=== PATIENT | female | born 1990 | race Caucasian/White ===

== ENCOUNTER → 2020-12-23 10:40 | Outpatient (REF) | payer OTHER, SELFPAY ==
--- NOTE | 2020-12-23 11:00 | CA_ITS ---
Acquisition Time: 2020-12-23 11:05:43 Total Exercise Time: 00:08:10 Test Indications: CP Medications: SEE CHART Protocol: YOEL Max HR: 179 BPM 95% of Pred: 188 BPM Max BP: 138/080 mmHG Max Work Load: 10.4 METS Exercise stress ECHO using Yoel protocol, total of 8 min 10 sec. METS 10.40and TAPHR up to 95 %. Pt tolerated well, denies any anginal sx. EKG without arrhythmias no ischemic changes seen during exercise or in recovery. ECHO images taken at rest and immediately after peak exercise HR reached. Definity contrast used. Normotensive response to exercise. Test reviewed with Dr. Andrews. Referred By: Ariel Gonzalez Overread By:
== END ==
LOC: HO.CARD 10:40
PROVIDERS: Visit Provider Internal Medicine Cardiovascular Disease
DX: R07.9 Chest pain, unspecified (principal)
CPT/HCPCS: 93350; Q9957

== ENCOUNTER 2024-06-29 09:15 | Outpatient (REF) | payer MEDICAID, SELFPAY ==
[2024-06-29 14:13] LABS: MANUAL DIFF FLAG NO
[2024-06-29 14:29] LABS: Basophils Absolute Auto 0.1 X10*3/uL (0.0-0.2); Basophils Percent Auto 0.7 % (0-2); Eosinophils Absolute Auto 0.1 X10*3/uL (0.0-0.4); Eosinophils Percent Auto 0.8 % (0-4); Hematocrit 34.7 % (37.0-47.0); Imm Gran Abs Auto 0.02 X10*3/uL (0.00-0.03); Imm Gran Pct Auto 0.2 % (0.0-0.4); Lymphocytes Absolute Auto 1.7 X10*3/uL (1.2-4.9); Lymphocytes Percent Auto 20.2 % (20-40); Mean Corpuscular HGB Conc 31.7 g/dl (31.0-35.0); Mean Corpuscular Hemoglobin 26.1 pg (27.0-33.0); Mean Corpuscular Volume 82.2 fL (80.0-98.0); Mean Platelet Volume 12.2 fL (9.4-12.3); Monocytes Absolute Auto 0.5 X10*3/uL (0.1-1.2); Monocytes Percent Auto 5.6 % (2-11); Neutrophils Absolute Auto 6.1 x10*3/uL (2.0-8.3); Neutrophils Percent Auto 72.5 % (45-73); Platelet Count 424 X10*3/uL (160-400); Red Blood Count 4.22 X10*6/uL (4.20-5.50); Red Cell Distribution Width 13.9 % (11.0-16.0); White Blood Count 8.5 X10*3/uL (4.8-10.8)
[2024-06-29 14:59] LABS: Rheumatoid Factor < 13.0 IU/mL (<15.0)
[2024-06-29 15:07] LABS: Erythrocyte Sedimentation Rate 23 MM/HR (0-20)
[2024-06-29 15:20] LABS: Alanine Aminotransferase 21 U/L (0-31); Albumin Level 4.1 g/dL (3.5-5.0); Alkaline Phosphatase 65 U/L (39-117); Anion Gap 9 (12-20); Aspartate Amino Transferase 22 U/L (5-31); Bilirubin Total 0.4 mg/dL (0.0-1.0); Blood Urea Nitrogen 11 mg/dL (9-16); Calcium 9.1 mg/dL (8.4-10.2); Carbon Dioxide 26 mmol/L (22-29); Chloride 105 mmol/L (96-108); Cholesterol 211 mg/dL (<200); Estimated Glomerular Filt Rate > 60; Glucose Random 88 mg/dL (60-115); HDL Cholesterol 50 mg/dL (>40); LDL Cholesterol Calculated 145 mg/dL (<100); Potassium 3.8 mmol/L (3.3-5.1); Sodium 136 mmol/L (135-145); Total Protein 7.7 g/dL (6.5-8.0); Triglycerides 83 mg/dL (<150); Uric Acid 3.6 mg/dL (2.4-5.7)
[2024-06-29 15:28] LABS: TSH reflex Free T4 0.93 uIU/mL (0.32-4.0); Vitamin D 25-OH Total 27.4 ng/mL (>30)
[2024-07-03 11:39] LABS: Cyclic Citrullinated Peptide <16 UNITS
[2024-07-04 11:38] LABS: Anti Nuclear Antibody Screen POSITIVE (NEGATIVE)
== END 2024-06-29 09:16 | disposition home or self-care (01) ==
LOC: HO.CHCLDS 09:15
PROVIDERS: Visit Provider Family Medicine
DX: M25.50 Pain in unspecified joint (principal); E66.01 Morbid (severe) obesity due to excess calories; Z68.36 Body mass index [BMI] 36.0-36.9, adult
CPT/HCPCS: 36415; 80053; 80061; 82306; 84443; 84550; 85025; 85652; 86038; 86039; 86140; 86200; 86431

== ENCOUNTER 2025-07-12 11:33 | Outpatient (REF) | payer MEDICAID, SELFPAY ==
--- OUTSIDE RECORDS SUMMARY | 2025-07-08 10:00 | XMS_ITS | Encounter Summary ---
Author Organization [employer] Address [address] [place] [address] Care Team Providers Care Bleacher Sulfite Pulp Name Role Phone Anastasiia Vital MD Primary Care Provider [phone] Reason for Visit * Reason Comments Routine Cleaning Dental Exam Encounter Details Date Type Department Care Team (Late st Contact Info) Description 07/08/2025 10:00 AM EDT Office Visit [facility] ADULT DENTAL [address] [place] [address] Casey Lacey Dental calculus (Primary Dx); Dental caries Social History Tobacco Use Types Packs/Day Years Used Date Smoking Tobacco: Never Passive Smoke Exposure: Never Smokeless Tobacco: Never Alcohol Use Standard Drinks/Week Comments Never 0 (1 standard drink = 0.6 oz pur e alcohol) Depression Answer Date Recorded Patient Health Questionnaire-9 Score 11 10/01/2024 Patient Health Questionnaire-9 Score 11 10/01/2024 Last PHQ-9: Questionnaire Data Not on file 1 12/02/2023 Housing Stability Answer Date Recorded What is your housing situation today? I have ran samaniego 06/19/[address] you li ve. Do you have problems with any of the following? None of the above 06/19/2024 Food Insecurity Answer Date Recorded Within the past 12 months, y ou worried that your food would run out before you got money to buy more: Never True 06/19/2024 Within the past 12 months,th e food you bought just didn't last and you didn't have enough money to get more: Never True Transportation Answer Date Recorded In the past 12 months, has l ack of transportation kept you from medical appts, meetings, work or from getting things needed for daily living? No 06/19/2024 Utilities Answer Date Recorded In the past 12 months, has t he electric, gas, oil or water company threatened to shut off services in your home? No 06/19/2024 Depression Answer Date Recorded Patient Health Questionnaire-2 Score 2 10/01/2024 Internet Access Answer Date Recorded Internet Access Q1 Yes 06/25/2024 Internet Access Q2 Not on file 06/25/2024 Comments No Sex and Gender Information Value Date Recorded Sex Assigned at Female 08/23/2022 10:35 AM EDT Legal Sex Female 10:35 AM EDT Gender Identity Female 08/23/2022 10:35 AM EDT Sexual Orientation Straight 08/23/2022 10 :35 AM EDT documented as of this encounter Last Filed Vital Signs Vital Sign Reading Time Taken Comments Blood Pressure 134/68 07/08/2025 9:50 AM EDT Pulse 65 07/08/2025 9:50 AM EDT Temperature - - Respiratory Rate - - Oxygen Saturation - - Inhaled Oxygen Concentration - - Weight - - Height - - Body Mass Index - - documented in this encounter Progress Notes * Casey Lacey - 07/08/2025 10:00 AM EDT Patient ID: Annalisa Lundberg is a 35 y.o. female. Time Out: Timeout Date: 07/08/25, Timeout Time: 950 Location: [facility] Tooth: Maxilla and Mandible Procedure: Exam and Prophylaxis Verified the above with patient, medical assistant dermatology, and provider. Confirmed via patient's chart, intraorally and by radiographs. Cheese Weigher: not applicable Medical Hx: Vitals: Blood pressure 134/68, pulse 65. Medications, Med Hx reviewed with patient and updated in chart. Treatment Provided Dental procedures in this visit D1110 - PROPHYLAXIS - ADULT (Completed) Service provider: Casey Lacey Billing provider: Dion Kelly DMD [id number] - ORAL HYGIENE INSTRUCTIONS (Completed) Service provider: Casey Lacey Billing provider: Dion Kelly DMD [id number] - CASE PRESENTATION, DETAILED AND EXTENSIVE TREATMENT PLANNING (Completed) Service provider: Casey Lacey Billing provider: Dion Kelly DMD Instruments Used: Ultrasonic Scalers and Prophy angle Fluoride: N/A Oral Cancer Screening: No lesions Head/Neck Exam: No Lesions Calculus: Light and Localized Plaque: Light and Generalized Stain: Light and Localized Bleeding: Light and Localized Gingiva: Erythematous OH: Fair Perio Chart: Not Completed Oral hygiene instructions provided to patient including brushing technique and flossing. Dental exam done by . Recommendations: [place] two times daily, modified medina technique, Floss daily Recall Frequency: 6 mo NV: 6mr Hygienist: Casey Lacey RDH * Dion Kelly DMD - 07/08/2025 10:00 AM EDT Dental procedures in this visit D1110 - PROPHYLAXIS - ADULT (Completed) Service provider: Casey Lacey Billing provider: Dion Kelly DMD D1330 - ORAL HYGIENE INSTRUCTIONS (Completed) Service provider: Casey Lacey Billing provider: Dion Kelly DMD [id number] - CASE PRESENTATION, DETAILED AND EXTENSIVE TREATMENT PLANNING (Completed) Service provider: Casey Lacey Billing provider: Dion Kelly DMD [id number] - PERIODIC ORAL EVALUATION - ESTABLISHED PATIENT (Completed) Service provider: Dion Kelly DMD Billing provider: Dion Kelly DMD Patient ID: Annalisa Lundberg is a 35 y.o. female. Time Out: Timeout Date: 07/08/25, Timeout Time: 950 Location: [facility] Tooth: all Procedure: Exam Verified the above with patient, medical assistant dermatology, and provider. Confirmed via patient's chart, intraorally and by radiographs. Cheese Weigher: Yes. Language: Maori. Cheese Weigher's Name: Catalina Chief Complaint Patient presents with Routine Cleaning Dental Exam Medical Hx: Vitals: Blood pressure 134/68, pulse 65. Medical History[1] Medications: Encounter Medications[2] Objective HPI: pt notes inflamed gingiva- stressed OHI and advise electric toothbrush Pt did not bring existing partial today - advise to bring to next visit so we can evaluate Soft Tissue Exam No findings documented this visit Head and Neck Exam: all structures examined Details: no swellings, ulcerations or lymphadenopathies OCS: negative Dental Exam Multiple areas of recurrent decay present - updated odontogram as there was no note from last exam visit #2-OL decay #3-MO decay #4-MOD decay #5-DO decay #8 existing RCT, post, crown. PARL present. Advise consult for retx, new post/core/crown #13-DO recurrent decay #14- recurrent decay #18 - recurrent decay and sensitive, advise extraction. Unopposed tooth #19 - MOD recurrent decay, new protestant planned #29- DO recurrent decay #31 - existing DO composite with recurrent decay, advise core/crown Informed pt of findings, treatment options and recommendations. All questions answered Rx written for prevident and counseled pt on use Radiographic Interpretation: Associated radiographs for today's visit were reviewed and finding(s) were discussed with the patient. Findings include: see above Hard Tissue Exam: Decay noted - see charting and treatment plan Perio Dx: gingivitis Reference tooth chart for additional findings. Oral Cancer Risk: Low Risk Oral Hygiene Instructions: [place] two times daily, modified medina technique, Floss daily, Electric toothbrush, Soft bristle toothbrush, [place] Tongue, Anti- sensitivity toothpaste, Prevident Caries Risk Assessment: High- two or more risk factors Assessment/Plan Caries control Consult for retx #[address] Nicholson #8,31 crowns Maintenance and recare Patient tolerated procedure well, all questions answered and expressed understanding. Dismissed in good condition. NV: TANNA [employer] Marker: Lizeth Gonzales Dentist: Dion Kelly DMD [1] Past Medical History: Diagnosis Date Bilateral calcaneal spurs Environmental and seasonal allergies Obesity PCOS (polycystic ovarian syndrome) [2] Outpatient Encounter Medications as of 07/08/2025 Medication Sig Dispense Refill acetaminophen (Tylenol 8 Hour) 650 MG ER tablet TAKE 1 TABLET BY MOUTH EVERY 8 HOURS NEEDED FOR MILD PAIN. NOT TO EXCEED 6 TABLETS PER DAY cetirizine (ZyrTEC) 10 MG tablet Take 1 tablet (10 mg) by mouth at bedtime. 90 tablet 0 cholecalciferol (Vitamin D-3) 50 MCG (1999 UT) capsule Take 1 capsule (50 mcg) by mouth Once per day. 120 capsule 3 Diclofenac Sodium 1 % gel APPLY 1 APPLICATION TOPICALLY TO THE AFFECTED AREA 4 TIMES A DAY NEEDED FOR MILD PAIN famotidine (Pepcid) 20 MG tablet Take 1 tablet (20 mg) by mouth at bedtime. 30 tablet 2 fexofenadine (Ana) 180 MG tablet Take 1 tablet (180 mg) by mouth if needed each day (Allergies). 90 tablet 0 hydrOXYzine pamoate (Vistaril) 25 MG capsule Take 1 capsule (25 mg) by mouth every 6 (six) hours ifneeded for anxiety. 90 capsule 1 Misc Natural Products (BRAINSTRONG MEMORY SUPPORT PO) Take by mouth. sertraline (Zoloft) 50 MG tablet Take 1 tablet (50 mg) by mouth Once per day. 90 tablet 1 Sodium Fluoride 1.1 % cream [place] teeth for 2 minutes, morning and night. Spit, do not rinse. Do not eat or drink anything for 30 minutes following use. 112 g 3 [DISCONTINUED] cetirizine (ZyrTEC) 10 MG tablet Take 1 tablet (10 mg) by mouth at bedtime. 30 tablet 2 [DISCONTINUED] cholecalciferol (Vitamin D-3) 50 MCG (2000 UT) capsule Take 1 capsule (50 mcg) by mouth Once per day. 120 capsule 3 [DISCONTINUED] famotidine (Pepcid) 20 MG tablet Take 1 tablet (20 mg) by mouth at bedtime. 30 tablet 2 [DISCONTINUED] hydrOXYzine pamoate (Vistaril) 25 MG capsule Take 1 capsule (25 mg) by mouth every 6(six) hours if needed for anxiety. 90 capsule 1 [DISCONTINUED] sertraline (Zoloft) 50 MG tablet Take 1 tablet (50 mg) by mouth Once per day. 90 tablet 1 No facility-administered encounter medications on file as of 07/08/2025. documented in this encounter Plan of Treatment Upcoming Encounters Date Type Department Care Team (Late st Contact Info) Description 07/22/2025 11:00 AM EDT Office Visit [facility] ADULT DENTAL [address] [place] [address] 07/23/2025 10:30 AM EDT Office Visit [facility] ADULT DENTAL [address] [place] [address] RobinDion triana, DMD [address] [place] [address] 09/30/2025 9:15 AM EST Office Visit [facility] CHC MED & PEDS [address] [place], [place] [phone] Anastasiia Vital MD [address] [place], [place] Scheduled Orders Name Type Priority Associated Diagnoses Orde r Schedule 31 31 CROWN - PORCELAIN/CERAMIC Dental Routine 1 Occurrences starting 07/08/2025 8 8 RETREATMENT OF PREVIOUS ROOT CANAL THERAPY - ANTERIOR Dental Routine 1 Occurrences starting 07/08/2025 8 8 PREFABRICATED POST AND CORE IN ADDITION TO CROWN Dental Routine 1 Occurrences 07/08/2025 8 8 CROWN - PORCELAIN/CERAMIC Dental Routine 1 Occurrences starting 07/08/2025 2 LO 2 LO RESIN-BASED COMPOSITE - 2 SURF, POSTERIOR Dental Routine 1 Occurrences 07/08/2025 3 MO 3 MO RESIN-BASED COMPOSITE - 2 SURF, POSTERIOR Dental Routine 1 Occurrences 07/08/2025 4 MOD 4 MOD RESIN-BASED COMPOSITE - 3 SURF, POSTERIOR Dental Routine 1 Occurrences 07/08/2025 5 DO 5 DO RESIN-BASED COMPOSITE - 2 SURF, POSTERIOR Dental Routine 1 Occurrences 07/08/2025 14 MOD 14 MOD RESIN-BASED COMPOSITE - 3 SURF, POSTERIOR Dental Routine 1 Occurrences 07/08/2025 18 18 EXTRACTION, ERUPTED TOOTH OR EXPOSED ROOT (ELEVATION/FORCEPS REMOVAL) Dental Routine 1 Occurrences 07/08/2025 19 MOD 19 MOD RESIN-BASED COMPOSITE - 3 SURF, POSTERIOR Dental Routine 1 Occurrences 07/08/2025 29 DO 29 DO RESIN-BASED COMPOSITE - 2 SURF, POSTERIOR Dental Routine 1 Occurrences 07/08/2025 LIMITED ORAL EVALUATION - PROBLEM FOCUSED Dental Routine 1 Occurrences 07/08/2025 31 31 CORE BUILDUP, INCL ANY PINS WHEN REQ Dental Routine 1 Occurrences starting 07/08/2025 13 DO 13 DO RESIN-BASED COMPOSITE - 2 SURF, POSTERIOR Dental Routine 1 Occurrences 07/08/2025 documented as of this encounter Procedures Procedure Name Priority Date/Time Associated Diagnosis Comments PROPHYLAXIS - ADULT Routine 07/08/2025 1 0:00 AM EDT Dental caries PERIODIC ORAL EVALUATION - ESTABLISHED PATIENT Routine 07/08/2025 10:00 AM EDT Dental caries ORAL HYGIENE INSTRUCTIONS Routine 2024 10:00 AM EDT Dental caries CASE PRESENTATION, DETAILED AND EXTENSIVE TREATMENT PLANNING Routine 07/08/2025 10:00 AM EDT Dental caries 8 PREFABRICATED POST AND CORE IN ADDITION TO CROWN Routine 07/08/2025 12:00 AM EDT 8 CROWN - PORCELAIN/CERAMIC Routine 07/08/2025 12:00 AM EDT 29 DO COMPOSITE FILLING Routine 07/08/20 25 12:00 AM EDT 24 DIFL COMPOSITE FILLING Routine 2024 12:00 AM EDT 20 DO COMPOSITE FILLING Routine 07/08/20 25 12:00 AM EDT 19 MOD COMPOSITE FILLING Routine 025 12:00 AM EDT 5 DO COMPOSITE FILLING Routine 12:00 AM EDT 4 MOD COMPOSITE FILLING Routine 07/08/20 25 12:00 AM EDT 8 ROOT CANAL Routine 07/08/2025 12:00 AM EDT documented in this encounter Visit Diagnoses Diagnosis Dental calculus- Primary Accretions on teeth Dental caries Unspecified dental caries documented in this encounter Additional Health Concerns Assessment Noted Time PHQ-9 Depression Total Score: 11 024 9:15 AM EST documented as of this encounter Care Teams Bleacher Sulfite Pulp Relationship Specialty Start Date End Date Anastasiia Vital MD [address] [place] [id number] PCP - General Family Medicine 06/28/24 documented as of this encounter
--- OUTSIDE RECORDS SUMMARY | 2025-07-12 10:30 | XMS_ITS | Encounter Summary ---
Author Organization [email or web address] Address [address] [place] [address] Care Team Providers Care Roadway Engineer Name Role Phone Anastasiia Vital MD Primary Care Provider [phone] Reason for Referral * Consultation (Routine) - Pending Review Specialty Diagnoses / Procedures Referred By Michael simmons Referred To Contact Podiatry Diagnoses Plantar fasciitis Anastasiia Vital MD [address] [place] [address] Phone: tel: fax: Referral ID Status Reason Start Date Expiration Date Visits Requested Visits Authorized [id number] Pending Review Specialty Services Required 07/12/2025 07/12/2026 1 1 Encounter Details Date Type Department Care Team (Late st Contact Info) Description 07/12/2025 10:30 AM EDT Office Visit [facility] CHC MED & PEDS [address] [place] [address] Anastasiia Vital MD [address] [place] [address] Sore throat (Primary Dx); Plantar fasciitis; Fibromyalgia; Encounter for health-related screening; Class 2 severe obesity with serious comorbidity and body mass index (BMI) of 39.0 to 39.9 in adult, unspecified obesity type (CMS/HCC) Social History Tobacco Use Types Packs/Day Years Used Date Smoking Tobacco: Never Passive Smoke Exposure: Never Smokeless Tobacco: Never Alcohol Use Standard Drinks/Week Comments Never 0 (1 standard drink = 0.6 oz pur e alcohol) Depression Answer Date Recorded Patient Health Questionnaire-9 Score 0 07/12/2025 Patient Health Questionnaire-9 Score 0 07/12/2025 Last PHQ-9: Questionnaire Data Not on file 0 07/12/2025 Housing Stability Answer Date Recorded What is [...] Answer Date Recorded Patient Health Questionnaire-2 Score 0 07/12/2025 Internet Access Answer Date Recorded Internet Access [...] Sign Reading Time Taken Comments Blood Pressure 142/88 07/12/2025 11:07 AM EDT Pulse 78 07/12/2025 10:34 AM EDT Temperature 36.2 C (97.2 F) 07/12/2025 10:34 AM EDT Respiratory Rate 20 07/12/2025 10:34 AM EDT Oxygen Saturation 98% 07/12/2025 10:34 AM EDT Inhaled Oxygen Concentration - - Weight 104 kg (228 lb 6.4 oz) 07/12/2025 10:34 A M EDT Height 162 cm (5' 3.78 ) 07/12/2025 10:34 AM EDT Body Mass Index 39.48 07/12/2025 10:34 AM EDT documented in this encounter Functional Status * Over the past 2 weeks, how often have you been bothered by any of the following problems? Question Answer Date of Assessment Author Patient Health Questionnaire -2 Score 0 07/12/2025 10:34 AM EDT Maggie Pina MA * Little interest or pleasure in doing things Answer Date of Assessment Author Not at all 07/12/2025 10:34 AM EDT Maggie Pina MA * Feeling down, depressed, or hopeless Answer Date of Assessment Author Not at all 07/12/2025 10:34 AM EDT Maggie Pina MA * Trouble falling or staying asleep, or sleeping too much Answer Date of Assessment Author Not at all 07/12/2025 10:34 AM EDT Maggie Pina MA * Feeling tired or having little energy Answer Date of Assessment Author Not at all 07/12/2025 10:34 AM EDT Maggie Pina MA * Poor appetite or overeating Answer Date of Assessment Author Not at all 07/12/2025 10:34 AM EDT Maggie Pina MA * Feeling bad about yourself - or that you are a failure or have let yourself or your family down Answer Date of Assessment Author Not at all 07/12/2025 10:34 AM EDT Maggie Pina MA * Trouble concentrating on things, such as reading the newspaper or watching television Answer Date of Assessment Author Not at all 07/12/2025 10:34 AM EDT Maggie Pina MA * Moving or speaking so slowly that other people could have noticed? Or the opposite - being so fidgety or restless that you have been moving around a lot more than usual. Answer Date of Assessment Author Not at all 07/12/2025 10:34 AM EDT Maggie Pina MA * Thoughts that you would be better off or hurting yourself in some way Answer Date of Assessment Author Not at all 07/12/2025 10:34 AM EDT Maggie Pina MA * Patient Health Questionnaire-9 Score Answer Date of Assessment Author 0 07/12/2025 10:34 AM EDT Maggie Pina MA documented as of this encounter Plan of Treatment Upcoming Encounters Date Type Department Care Team (Late st Contact Info) Description 07/22/2025 11:00 AM EDT Office Visit [facility] ADULT DENTAL [address] [place] [address] 07/23/2025 10:30 AM EDT Office Visit [facility] ADULT DENTAL [address] [place] [address] Dion Kelly DMD [address] [place] [address] 09/30/2025 9:15 AM EST Office Visit [facility] MED & PEDS [address] [place] [address] Anastasiia Vital MD [address] [place] [address] Scheduled Orders Name Type Priority Associated Diagnoses Orde r Schedule CBC auto differential Lab Routine Class 2 severe obesity with serious comorbidity and body mass index (BMI) of 39.0 to 39.9 in adult, unspecified obesity type (CMS/HCC) Expected: 07/12/2025 (Approximate), Expires: 07/12/2026 Comprehensive Metabolic Panel Lab Routine Class 2 severe obesity with serious comorbidity and body mass index (BMI) of 39.0 to 39.9 in adult, unspecified obesity type (CMS/HCC) Expected: 07/12/2025 (Approximate), Expires: 07/12/2026 TSH W/Reflex to FT4 Lab Routine Class 2 severe obesity with serious comorbidity and body mass index (BMI) of 39.0 to 39.9 in adult, unspecified obesity type (CMS/HCC) Expected: 07/12/2025 (Approximate), Expires: 07/12/2026 Lipid Panel, Standard Lab Routine Class 2 severe obesity with serious comorbidity and body mass index (BMI) of 39.0 to 39.9 in adult, unspecified obesity type (CMS/HCC) Expected: 07/12/2025 (Approximate), Expires: 07/12/2026 Albumin, Random Urine W/Creatinine Lab Routine Class 2 severe obesity with serious comorbidity and body mass index (BMI) of 39.0 to 39.9 in adult, unspecified obesity type (CMS/HCC) Expected: 07/12/2025 (Approximate), Expires: 07/12/2026 HIV-1/2 Antigen and Antibodies, Fourth Generation, with Reflexes Lab Routine Encounter for health-related screening Expected: 07/12/2025 (Approximate), Expires: 07/12/2026 Hepatitis C Antibody with Reflex to HCV, RNA, Quantitative, Real-Time PCR Lab Routine Encounter for health-related screening Expected: 07/12/2025, Expires: 07/12/2026 Hepatitis B Surface Antibody, Qualitative Lab Routine Encounter for health-related screening Expected: 07/12/2025 (Approximate), Expires: 07/12/2026 Hepatitis B surface antigen, EIA Lab Routine Encounter for health-related screening Expected: 07/12/2025 (Approximate), Expires: 07/12/2026 Hepatitis B Core Antibody, Total Lab Routine Encounter for health-related screening Expected: 07/12/2025 (Approximate), Expires: 07/12/2026 Scheduled Referrals Name Type Priority Associated Diagnoses Orde r Schedule Referral to Podiatry Outpatient Referral Routine Plantar fasciitis Expected: 07/12/2025 (Approximate), Expires: 07/12/2026 documented as of this encounter Procedures Procedure Name Priority Date/Time Associated Diagnosis Comments POCT RAPID STREP A Routine 07/12/2025 11 :01 AM EDT Sore throat documented in this encounter Results * POCT Rapid Strep A [facility]OM (07/12/2025 11:01 AM EDT) Pathologist [facility] Rapid Strep A Screen Negative Negative, None Detected QC Media Lot # [id number] Lot# Expiration Date [id number] Swab 07/12/2025 11:0 1 AM EDT Anastasiia Vital MD POINT OF CARE TEST ENTER/EDIT ORDERABLES Final Result documented in this encounter Visit Diagnoses Diagnosis Sore throat- Primary Acute pharyngitis Plantar fasciitis Plantar fascial fibromatosis Fibromyalgia Unspecified myalgia and myositis Encounter for health-related screening Class 2 severe obesity with serious comorbidity and body mass index (BMI) of 39.0 to 39.9 in adult, unspecified obesity type (CMS/HCC) documented in this encounter Additional Health Concerns Assessment Noted Time PHQ-9 Depression Total Score: 0 07/12/20 25 10:34 AM EDT documented as of this encounter Care Teams Roadway Engineer Relationship Specialty Start Date End Date Anastasiia Vital MD [address] [place] [id number] PCP - General Family Medicine 06/28/24 documented as of this encounter
--- OUTSIDE RECORDS SUMMARY | 2025-07-12 12:10 | XMS_ITS | Encounter Summary ---
Author Organization [employer] Address [address] [facility] 7 [place] [address] Care Team Providers Care Driver'S License Examiner Name Role Phone Anastasiia Vital MD Primary Care Provider [phone] Encounter Details Date Type Department Care Team (Late st Contact Info) Description 07/17/2024 Orders Only [facility] Information Management [address] [place] [address] Provider, MD [place] Social History Tobacco Use Types Packs/Day Years Used Date Smoking Tobacco: Never Passive Smoke Exposure: Never Smokeless Tobacco: Never Alcohol Use Standard Drinks/Week Comments Never 0 (1 standard drink = 0.6 oz pur e alcohol) Depression Answer Date Recorded Patient Health Questionnaire-9 Score 16 06/28/2024 Patient Health Questionnaire-9 Score 16 06/28/2024 Last PHQ-9: Questionnaire Data Not on file 0 06/28/2024 Housing Stability Answer Date Recorded What is [...] Answer Date Recorded Patient Health Questionnaire-2 Score 5 06/28/2024 Internet Access Answer Date Recorded Internet Access Q1 Yes 06/25/2024 Internet Access Q2 Not on file 06/25/2024 Comments No Sex and Gender Information Value Date Recorded Sex Assigned at Female 08/23/2022 10:35 AM EDT Legal Sex Female 10:35 AM EDT Gender Identity Female 08/23/2022 10:35 AM EDT Sexual Orientation Straight 08/23/2022 10 :35 AM EDT documented as of this encounter Plan of Treatment Upcoming Encounters Date Type Department Care Team ([facility] st Contact Info) Description 07/22/2025 11:00 AM EDT Office Visit [facility] ADULT DENTAL [address] [place] [address] 07/23/2025 10:30 AM EDT Office Visit [facility] ADULT DENTAL [address] [place] [address] Dion Kelly DMD [address] [place] [address] 09/30/2025 9:15 AM EST Office Visit [facility] MED & PEDS [address] [place] [address] Anastasiia Vital MD [address] [place] [address] documented as of this encounter Procedures Procedure Name Priority Date/Time Associated Diagnosis Comments HM PAP/HPV Routine 10/10/2023 12:53 PM EST documented in this encounter Results * HM PAP/HPV (10/10/2023 12:53 PM EST) us Historical Provider HEALTH MAINTENANCE Final Result documented in this encounter Visit Diagnoses Not on filedocumented in this encounter Additional Health Concerns Assessment Noted Time PHQ-9 Depression Total Score: 16 024 11:08 AM EDT documented as of this encounter Care Teams Driver'S License Examiner Relationship Specialty Start Date End Date Anastasiia Vital MD [address] [place] [address] PCP - General Family Medicine 06/28/24 documented as of this encounter
--- OUTSIDE RECORDS SUMMARY | 2025-07-12 12:10 | XMS_ITS | Encounter Summary ---
Author Organization [employer] Address [address] [facility] [address] 7 [place] [address] Care Team Providers Care Plodding Operator Name Role Phone Anastasiia Vital MD Primary Care Provider [phone] Reason for Visit * Reason Onset Date Comments Referral 07/09/2024 Encounter Details Date Type Department Care Team ([facility] st Contact Info) Description 07/09/2024 Telephone [facility] MED & PEDS [address] [place] [address] Anastasiia Vital MD [address] [place] [address] Referral Social History Tobacco Use Types Packs/Day Years [...] AM EDT documented as of this encounter Miscellaneous Notes * Telephone Encounter - Altagracia Langston RN - 07/20/2024 4:19 PM EDT Report printed and handed to client delivery specialist to send to Neuro. * Telephone Encounter - Marylou Lopez - 07/20/2024 3:35 PM EDT Can you please check [facility] records for an MRI of the brain on 07/11/24 for me, thank you. * Telephone Encounter - Marylou Lopez - 07/10/2024 9:53 AM EDT Patient notified she will need to get MRI of brain in order to proceed with referral. Patient has an appointment for 07/11 @8:45pm for MRI. * Telephone Encounter - Anastasiia Vital MD - 07/09/2024 4:05 PM EDT Note signed thanks! * Telephone Encounter - Emely Anderson - 07/09/2024 9:36 AM EDT Tc from pt requesting status on neurology referral . Requested for referral to be sent to [facility]. documented in this encounter Plan of Treatment Upcoming Encounters Date Type Department Care Team (Late st Contact Info) Description 07/22/2025 11:00 AM EDT Office Visit [facility] ADULT DENTAL [address] [place] [address] 07/23/2025 10:30 AM EDT Office Visit [facility] ADULT DENTAL [address] [place] [address] Dion Kelly DMD [address] [place] [address] 09/30/2025 9:15 AM EST Office Visit [facility] MED & PEDS [address] [place] [address] Anastasiia Vital MD [address] [place] [address] documented as of this encounter Visit Diagnoses Not on filedocumented in this encounter Additional Health Concerns Assessment Noted Time PHQ-9 Depression Total Score: 16 024 11:08 AM EDT documented as of this encounter Care Teams Plodding Operator Relationship Specialty Start Date End Date Anastasiia Vital MD [address] [place] [address] PCP - General Family Medicine 06/28/24 documented as of this encounter
--- OUTSIDE RECORDS SUMMARY | 2025-07-12 12:10 | XMS_ITS | Encounter Summary ---
Author Organization [employer] Address [address] [facility] [address] 7[address] [place] [address] Care Team Providers Care Tie In Machine Operator Name Role Phone Anastasiia Vital MD Primary Care Provider [phone] Encounter Details Date Type Department Care Team (Latest Contact Info) Description 07/12/2025 Travel Social History Tobacco Use Types Packs/Day Years [...] your housing situation today? I have ran aden 06/19/[address] you li [...] AM EDT documented as of this encounter Functional Status * Over the [...] Description 07/22/2025 11:00 AM EDT [facility] ADULT [facility] [address] [place] [address] 07/23/2025 10:30 AM EDT Office Visit [facility] ADULT [facility] [address] [place] [address] Dion Kelly DMD [address] [place] [address] 09/30/2025 9:15 AM EST Office Visit [facility] MED & PEDS [address] [place] [address] Anastasiia Vital MD [address] [place] [address] documented as of this encounter Visit Diagnoses Not on filedocumented in this encounter Additional Health Concerns Assessment Noted Time PHQ-9 Depression Total Score: 0 07/12/20 25 10:34 AM EDT documented as of this encounter Care Teams Tie In Machine Operator Relationship Specialty Start Date End Date Anastasiia Vital MD [address] [place] [address] PCP - General Family Medicine 06/28/24 documented as of this encounter
--- OUTSIDE RECORDS SUMMARY | 2025-07-12 12:10 | XMS_ITS | Clinical Summary ---
Author Organization [employer] Address [address] [facility] 7t [place] [address] Care Team Providers Care Rn Anesthetist Name Role Phone Anastasiia Vital MD Primary Care Provider [phone] Allergies Active Allergy Reactions Criticality Noted Date Comments Norethindrone Itching 07/12/2019 Sulfa Antibiotics Hives 05/04/2019 Medications Misc Natural Products ([employer] SUPPORT PO) Take by mouth. Activ e acetaminophen (Tylenol 8 Hour) 650 MG ER tablet TAKE 1 TABLET BY MOUTH EVERY 8 HOURS NEEDED FOR MILD PAIN. NOT TO EXCEED 6 TABLETS PER DAY 09/04/20 24 Active fexofenadine (Ana) 180 MG tablet Take 1 tablet (180 mg) by mouth if needed each day (Allergies). 90 tablet 12/25/19 25 Active Diclofenac Sodium 1 % gel APPLY 1 APPLICATION TOPICALLY TO THE AFFECTED AREA 4 TIMES A DAY NEEDED FOR MILD PAIN 03/20/20 25 Active cholecalcifero l (Vitamin D-3) 50 MCG (1999 UT) capsule Take 1 capsule (50 mcg) by mouth Once per day. 120 capsule 3 07/05/20 25 Active sertraline (Zoloft) 50 MG tabletIndicati ons:Anxiety,De pression, unspecified depression type Take 1 tablet (50 mg) by mouth Once per day. 90 tablet 1 07/05/20 25 Active hydrOXYzine pamoate (Vistaril) 25 MG capsuleIndicat ions:Anxiety,D epression, unspecified depression type Take 1 capsule (25 mg) by mouth every 6 (six) hours if needed for anxiety. 90 capsule 1 07/05/20 25 Active cetirizine (ZyrTEC) 10 MG tablet Take 1 tablet (10 mg) by mouth at bedtime. 90 tablet 07/05/20 25 Active famotidine (Pepcid) 20 MG tablet Take 1 tablet (20 mg) by mouth at bedtime. 30 tablet 2 07/05/20 25 Active Sodium Fluoride 1.1 % creamIndicatio ns:Dental caries Nichols teeth for 2 minutes, morning and night. Spit, do not rinse. Do not eat or drink anything for 30 minutes following use. 112 g 3 07/08/20 25 Active gabapentin (Neurontin) 100 MG capsule Take 1 capsule (100 mg) by mouth every 8 (eight) hours. 90 capsule 1 07/12/20 25 Active cholecalcifero l (Vitamin D-3) 50 MCG (2000 UT) capsule Take 1 capsule (50 mcg) by mouth Once per day. 120 capsule 3 08/03/20 025 Discontinued(R eorder (will not trigger notification to Pharmacy)) sertraline (Zoloft) 50 MG tabletIndicati ons:Anxiety,De pression, unspecified depression type Take 1 tablet (50 mg) by mouth Once per day. 90 tablet 1 08/03/20 025 Discontinued(R eorder (will not trigger notification to Pharmacy)) hydrOXYzine pamoate (Vistaril) 25 MG capsuleIndicat ions:Anxiety,D epression, unspecified depression type Take 1 capsule (25 mg) by mouth every 6 (six) hours if needed for anxiety. 90 capsule 1 08/03/20 025 Discontinued(R eorder (will not trigger notification to Pharmacy)) cetirizine (ZyrTEC) 10 MG tablet Take 1 tablet (10 mg) by mouth at bedtime. 30 tablet 2 10/01/20 025 Discontinued(R eorder (will not trigger notification to Pharmacy)) famotidine (Pepcid) 20 MG tablet Take 1 tablet (20 mg) by mouth at bedtime. 30 tablet 2 10/01/20 24 025 Discontinued(R eorder (will not trigger notification to Pharmacy)) Active Problems Problem Noted Date Diagnosed Date Fibromyalgia 07/12/2025 Allergic contact blepharoconjunctivitis 12/25/19 Assessment & Plan (12/24/2024 10:29 AM EST): Advised to avoid make up for cosmetic moisturizing creams. Use CeraVe products for facial cleaning and hydration. Use triamcinolone cream twice a day on eyelids bilateral, avoid contact with conjunctival mucosa. Use ketotifen eyedrops twice daily. Use Ana once a day. Chronic cough 10/01/2024 Other sleep apnea 10/01/2024 Assessment & Plan (10/01/2024 9:33 AM EST): Ordering sleep test for further evaluation. Attention deficit hyperactivity disorder (ADHD) 08/03/2024 Hirsutism 06/28/2024 Hypothyroidism 06/28/2024 Thyroid nodule 06/28/2024 Obesity 06/28/2024 Assessment & Plan (06/28/2024 3:47 PM EDT): Ordering Lipid Panel, Vitamin D, and TSH for further evaluation. Uterine leiomyoma 06/28/2024 Papilledema, both eyes 06/28/2024 Assessment & Plan (06/28/2024 3:46 PM EDT): Referral to Neurology and ordering MRI of Brain for further evaluation. Polyarthralgia 06/28/2024 Assessment & Plan (08/14/2024 7:28 PM EDT): Patient with diffuse joint aches, + RUTH ANN, CRP, sed rate, non specific, crow end to rheumatology for evaluation. Assessment & Plan (06/28/2024 3:47 PM EDT): Ordering lab work for further evaluation. Encounters Date Type Department Care Team Description 07/12/2025 10:30 AM EDT Office Visit [facility] MED & PEDS [address] [place] [address] Anastasiia Vital MD Sore throat (Primary Dx); Plantar fasciitis; Fibromyalgia; Encounter for health-related screening; Class 2 severe obesity with serious comorbidity and body mass index (BMI) of 39.0 to 39.9 in adult, unspecified obesity type ([facility]) 07/12/2025 Travel 07/08/2025 10:00 AM EDT Office Visit [facility] ADULT DENTAL [address] [place] [address] Casey Lacey Dental calculus (Primary Dx); Dental caries 07/08/2025 Telephone [facility] MED & PEDS [address] [place] [address] Anastasiia Vital MD 07/05/2025 Patient Outreach [address] [address] Anastasiia Vital MD Pre-visit Planning (SDOH screening completed on 05/01/25) 07/05/2025 Refill [facility] MED [facility] PED[facility] [address] [place] [address] Anastasiia Vital MD Anxiety; Depression, unspecified depression type 05/23/[address] [address] Anastasiia Vital MD Nurse Triage 05/23/[address] [address] Anastasiia Vital MD Referral 05/20/2025 Patient Outreach [address] [address] Anastasiia Vital MD Pre-visit Planning (SDOH screening completed on 05/01/25) 05/01/2025 Patient Outreach [address] [address] Anastasiia Vital MD Pre-visit Planning (SDOH screening negative and Tobacco screening negative) from Last 3 Months Immunizations Immunization Administration Dates Next Due Influenza injectable quadriv alent IIV4 with preservative 08/13/2019 Influenza, seasonal, injectable, preservative fr ee 10/01/2024 Tdap 08/24/2021,11/06/2019 Family History Medical History Relation Name Comments Emphysema Maternal Grandmother Rheum arthritis Maternal Grandmother Lupus Mother Relation Name Status Comments Maternal Grandmother Mother Social History Tobacco Use Types Packs/Day Years Used Date Smoking Tobacco: Never Passive Smoke Exposure: Never Smokeless Tobacco: Never Tobacco Cessation:Counseling Given: Not Answered Alcohol Use Standard Drinks/Week Comments Never 0 (1 standard drink = 0.6 oz pur e alcohol) Depression Answer Date Recorded Patient Health Questionnaire-9 Score 0 07/12/2025 Patient Health Questionnaire-9 Score 0 07/12/2025 Last PHQ-9: Questionnaire Data Not on file 0 07/12/2025 Housing Stability Answer Date Recorded What is your housing situation today? I have ranchandrakant samaniego 06/19/[address] you [...] Orientation Straight 08/23/2022 10 :35 AM EDT Last Filed Vital Signs Vital Sign Reading [...] Mass Index 39.48 07/12/2025 10:34 AM EDT Plan of Treatment Upcoming Encounters Date Type Department Care Team (Late st Contact Info) Description 07/22/2025 11:00 AM EDT Office Visit [facility] ADULT DENTAL [address] [place] [address] 07/23/2025 10:30 AM EDT Office Visit [facility] ADULT DENTAL [address] [place] [address] Dion Kelly DMD [address] [place] [address] 09/30/2025 9:15 AM EST Office Visit [facility] MED & PEDS [address] [place] [address] Anastasiia Vital MD [address] [place] [address] Health Maintenance Due Date Last Done Comments HIV Screening 1988 Family Planning (PISQ) 01/04/2003 HPV Vaccines (1 - 3-dose series) 01/04/2003 Hepatitis C Screening 01/04/2006 Hepatitis B Vaccines (1 of 3 - 19+ 3-dose series) 01/04/2007 COVID-19 Vaccine ( - 2023-2 5 season) 2025 Influenza Vaccine (#1) 2025 , 08/13/2019 Alcohol/Substance Use Screening 10/01/2025 10/01/2024 Dental X-Ray: Bitewings 10/24/2025 10/23/20 24, 11/26/2019 Dental Oral Exam 01/06/2026 07/08/2025, 11/26/2019 Dental Prophylaxis 01/06/2026 07/08/2025, 10/23/2024 SDOH Screening 05/01/2026 05/01/2025 Depression Screening 07/12/2026 07/12/2025, 07/12/2025 Disability Screening 07/12/2026 07/12/2025 Tobacco Screening 07/12/2026 07/12/2025 Dental X-Ray: Full Mouth 10/24/2027 024, 11/26/2019 Cervical Cancer Screening 10/10/2028 HPV/Cotest 10/10/2028 07/04/2019 Pap Smear 10/10/2028 10/10/2023, 10/10/2023, 10/10/2023 Lipid Panel 06/29/2029 06/29/2024 DTaP/Tdap/Td Vaccines (3 - T d or Tdap) 08/24/2031 08/24/2021, 11/06/2019 Zoster Vaccines (1 of 2) 01/04/2038 RSV Patients and Patients Aged 60 years or older (1 - 1-dose 75+ series) 01/04/2063 HIB Vaccines Aged Out No longer eligi ble based on patient's age to complete this topic Hepatitis A Vaccines Aged Out No long er eligible based on patient's age to complete this topic IPV Vaccines Aged Out No longer eligi ble based on patient's age to complete this topic Meningococcal B Vaccine Aged Out No l onger eligible based on patient's age to complete this topic Meningococcal Vaccine Aged Out No gerson sharif eligible based on patient's age to complete this topic Pneumococcal Vaccine: Pediatrics (0 to 5 Years) and At-Risk Patients (6 to 49) Years Aged Out No longer eligible b ased on patient's age to complete this topic RSV under 20 months Aged Out No longe r eligible based on patient's age to complete this topic Rotavirus Vaccines Aged Out No longer eligible based on patient's age to complete this topic Procedures Procedure Name Priority Date/Time Associated Diagnosis Comments POCT RAPID STREP A Routine 07/12/2025 11 :01 AM EDT Sore throat PERIODIC ORAL EVALUATION - ESTABLISHED PATIENT Routine 07/08/2025 10:00 AM EDT Dental caries ORAL HYGIENE INSTRUCTIONS Routine 07/08/2025 10:00 AM EDT Dental caries CASE PRESENTATION, DETAILED AND EXTENSIVE TREATMENT PLANNING Routine 07/08/2025 10:00 AM EDT Dental caries PROPHYLAXIS - ADULT Routine 07/08/2025 1 0:00 AM EDT Dental caries 29 DO COMPOSITE FILLING Routine 07/08/2025 12:00 AM EDT 24 DIFL COMPOSITE FILLING Routine 07/08/2025 12:00 AM EDT 20 DO COMPOSITE FILLING Routine 07/08/2025 12:00 AM EDT 19 MOD COMPOSITE FILLING Routine 07/08/2025 12:00 AM EDT 5 DO COMPOSITE FILLING Routine 12:00 AM EDT 4 MOD COMPOSITE FILLING Routine 07/08/2025 12:00 AM EDT 8 CROWN - PORCELAIN/CERAMIC Routine 07/08/2025 12:00 AM EDT 8 PREFABRICATED POST AND CORE IN ADDITION TO CROWN Routine 07/08/2025 12:00 AM EDT 8 ROOT CANAL Routine 07/08/2025 12:00 AM EDT INTRAORAL - COMPLETE SERIES OF RADIOGRAPHIC IMAGES Routine 10/23/2024 10:00 AM EST LIPID PANEL, STANDARD Routine 06/29/2024 9:20 AM EDT Class 2 severe obesity due to excess calories with serious comorbidity and body mass index (BMI) of 36.0 to 36.9 in adult ([facility]) HM PAP/HPV Routine 10/10/2023 12:53 PM EST ZZZ HISTORICAL HPV MRNA E6/E7 Routine 07/04/2019 3:41 PM EDT from Last 3 Months or Most Recently Relevant to Health Maintenance Results * POCT Rapid Strep A OSOM (07/12/2025 11:01 AM EDT) Pathologist [facility] Rapid Strep A Screen Negative Negative, None Detected QC Media Lot # [id number] Lot# Expiration Date [id number] Swab 07/12/2025 11:0 1 AM EDT Anastasiia Vital MD POINT OF CARE TEST ENTER/EDIT ORDERABLES Final Result * (ABNORMAL) Lipid Panel, Standard (06/29/2024 9:20 AM EDT) Pathologist [facility] Triglycerides 83 <150 mg/dL [facility] Comment:Desirable Triglyceri de: less than 150 mg/dLBorderline High Triglyceride 150-199 mg/dLHigh Triglyceride: 200-499 mg/dLVery High Triglyceride: greater than or equal to 5OO mg/dL Cholesterol 211(H) <200 mg/dL [facility] Comment:Desirable Cholestero l: less than 200 mg/dLBorderline High Cholesterol: 200-239 mg/dLHigh Cholesterol: greater than 239 mg/dL LDL Cholesterol Calculated 145(H) <100 mg/dL [facility] Comment:Desirable LDL: less than 100 mg/dLNear Optimal/Above Optimal LDL: 110- 129 mg/dLBorderline High LDL: 130-159 mg/dLHigh LDL: 160-189 mg/dLVery High LDL: greater than or equal to 190 mg/dL HDL Cholesterol 50 >40 mg/dL [facility] Comment:Desirable HDL: great er than 40 mg/dL Note: This HDL assay may give artificially low results in patients with liver disease. Blood Venous blood specimen / Unknown 06/29/2024 9:20 AM EDT 06/29/2024 2:03 PM EDT Anastasiia Vital MD LAB BLOOD ORDERABLES Final Re sult [facility] [address] [place] [address] [phone] * HM PAP/HPV (10/10/2023 12:53 PM EST) Historical Provider HEALTH MAINTENANCE Final Result * (ABNORMAL) HPV mRNA E6/E7 (07/04/2019 3:41 PM EDT) HPV mRNA E6/E7 DETECTED (AA) NOT DETECTED [facility] Comment: This test was performed using the APTIMA(R) HPV Assay ([employer] This assay detects E6/E7 viral messenger RNA (mRNA) from 14 high-risk HPV types (16,18,31,33,35,39,45,51, 52,56,58,59,66,68). For additional information please refer to: http://education.Encoding.com/faq/EPZ140e9 (This link is being provided for informational/ educational purposes only.) The analytical performance characteristics of this assay have been determined by [employer] [place], [place]. The modifications have not been cleared or approved by the FDA. This assay has been validated pursuant to the CLIA regulations and is used for clinical purposes. Test Performed by [employer], [employer] [place], [address] [place] [address] Bryce Watt M.D., Ph.D., Director of Laboratories , CLIA [id number] Please note: Effective 07/05/2016, HPV testing will be performed using [employer]'s APTIMA test which targets mRNA. Detecting mRNA instead of DNA, as in older methods, offers significant improvements in specificity. 07/04/2019 3:41 PM EDT us Carissa Duke CNM HISTORICAL/NON ORDERABLE LABS Final Result Performing Organization Address City/State/[facility] Co de Phone Number [facility] [address] from Last 3 Months or Most Recently Relevant to Health Maintenance Insurance [id number] MED[facility] STAND ADULT Care Teams Rn Anesthetist Relationship Specialty Start Date End Date Anastasiia Vital MD [address] [place] [id number] PCP - General Family Medicine 06/28/24
--- OUTSIDE RECORDS SUMMARY | 2025-07-12 12:10 | XMS_ITS | Encounter Summary ---
Author Organization [employer] Address [address] [facility] 7 [place] [address] Care Team Providers Care Director Of Consumer Affairs Name Role Phone Anastasiia Vital MD Primary Care Provider [phone] Encounter Details Date Type Department Care Team (Late st Contact Info) Description 08/01/2024 Orders Only [facility] [address] [place] [address] Provider, MD [place] Social History Tobacco Use Types Packs/Day Years Used Date Smoking Tobacco: Never Passive Smoke Exposure: Never Smokeless Tobacco: Never Alcohol Use Standard Drinks/Week Comments Never 0 (1 standard drink = 0.6 oz pur e alcohol) Depression Answer Date Recorded Patient Health Questionnaire-9 Score 21 08/03/2024 Patient Health Questionnaire-9 Score 21 08/03/2024 Last PHQ-9: Questionnaire Data Not on file 1 Housing Stability Answer Date Recorded What is [...] Answer Date Recorded Patient Health Questionnaire-2 Score 4 08/03/2024 Internet Access Answer Date Recorded Internet Access [...] Assessment Author Patient Health Questionnaire -2 Score 4 08/03/2024 10:05 AM Anastasiia Campbell MD * If you checked off any problems on this questionnaire so far, Question Answer Date of Assessment Author How difficult have these problems made it for you to do your work, take care of things at home, or get along with other people? Extremely difficult 08/03/2024 10:05 AM Anastasiia Campbell MD * Over the last 2 weeks, how often have you been bothered by any of the following problems? Question Answer Date of Assessment Author Feeling nervous, anxious, or on edge 3 08/03/2024 10:07 AM Anastasiia Campbell MD Not being able to stop or co ntrol worrying 3 08/03/2024 10:07 AM Anastasiia Campbell MD Worrying too much about diff erent things 3 08/03/2024 10:07 AM Anastasiia Campbell MD Trouble relaxing 3 08/03/2024 10:07 AM Anastasiia Campbell MD Being so restless that it is hard to sit still 3 08/03/2024 10:07 AM Anastasiia Campbell MD Becoming easily annoyed or irritable 3 08/03/2024 10:07 AM Anastasiia Campbell MD Feeling afraid as if somethi ng awful might happen 0 08/03/2024 10:07 AM Anastasiia Campbell MD KAIN-7 Total Score 18 08/03/2024 10:07 AM Anastasiia Campbell MD * Over the past 2 weeks, how often have you been bothered by any of the following problems? Question Answer Date of Assessment Author Little interest or pleasure in doing things More than half the days 08/03/2024 10:05 AM Anastasiia Campbell MD Feeling down, depressed, or hopeless More than half the days 08/03/2024 10:05 AM Anastasiia Campbell MD Trouble falling or staying asleep, or sleeping too much Nearly every day 08/03/2024 10:05 AM Anastasiia Campbell MD Feeling tired or having little energy Nearly every day 08/03/2024 10:05 AM Anastasiia Campbell MD Poor appetite or overeating Nearly every day 08/03/2024 10:05 AM Anastasiia Campbell MD Feeling bad about yourself - or that you are a failure or have let yourself or your family down Nearly every day 08/03/2024 10:05 AM Anastasiia Campbell MD Trouble concentrating on things, such as reading the newspaper or watching television Nearly every day 08/03/2024 10:05 AM Anastasiia Campbell MD Moving or speaking so slowly that other people could have noticed? Or the opposite - being so fidgety or restless that you have been moving around a lot more than usual. More than half the days 08/03/2024 10:05 AM Anastasiia Campbell MD Thoughts that you would be better off or hurting yourself in some way Not at all 08/03/2024 10:05 AM Anastasiia Campbell MD Patient Health Questionnaire-9 Score 21 08/03/2024 10:05 AM Anastasiia Campbell MD documented as of this encounter Plan of Treatment Upcoming Encounters Date Type Department Care Team (Late st Contact Info) Description 07/22/2025 11:00 AM EDT Office Visit [facility] [address] [place] [address] 07/23/2025 10:30 AM EDT Office Visit [facility] [address] [place] [address] Dion Kelly DMD [address] [place] [address] 09/30/2025 9:15 AM EST Office Visit [facility] [address] [place] [address] Anastasiia Vital MD [address] [place] [address] documented as of this encounter Procedures Procedure Name Priority Date/Time Associated Diagnosis Comments THIN PREP PAP Routine 10/10/2023 2:09 PM EST THIN PREP PAP Routine 10/10/2023 2:08 PM EST documented in this encounter Results * THIN PREP PAP (10/10/2023 2:09 PM EST) Historical Provider MD LAB CYTOLOGY ORDERABLES F inal Result * THIN PREP PAP (10/10/2023 2:08 PM EST) Historical Provider LAB CYTOLOGY ORDERABLES F inal Result documented in this encounter Visit Diagnoses Not on filedocumented in this encounter Additional Health Concerns Assessment Noted Time PHQ-9 Depression Total Score: 16 024 11:08 AM EDT documented as of this encounter Care Teams Director Of Consumer Affairs Relationship Specialty Start Date End Date Anastasiia Vital MD [address] [place] [address] PCP - General Family Medicine 06/28/24 documented as of this encounter
--- OUTSIDE RECORDS SUMMARY | 2025-07-12 12:10 | XMS_ITS | Encounter Summary ---
Author Organization [employer] Address [address] [facility] [address] [address] 7[address] [place] [address] Care Team Providers Care Aquarium Specialist Name Role Phone Anastasiia Vital MD Primary Care Provider [phone] Encounter Details Date Type Department Care Team ([facility] st Contact Info) Description 07/08/2025 Telephone [facility] MED & PEDS [address] [place] [address] Anastasiia Vital MD [address] [place] [address] Social History Tobacco Use Types Packs/Day Years [...] encounter Miscellaneous Notes * Telephone Encounter - Maggie Pina MA - 07/08/2025 2:26 PM EDT Chart Prep Labs: done Images: done Referrals: complete Vaccines due: Covid, Flu, and Hep B Screenings: Overdue care gaps: SBIRT, SDOH, PHQ-9, and Disability screen documented in this encounter Plan of Treatment Upcoming Encounters Date Type Department Care Team (Late st Contact Info) Description 07/22/2025 11:00 AM EDT Office Visit [facility] [address] [place] [address] 07/23/2025 10:30 AM EDT Office Visit [facility] [address] [place] [address] Dion Kelly DMD [address] [place] [address] 09/30/2025 9:15 AM EST Office Visit [facility]ED[facility] [address] [place] [address] Anastasiia Vital MD [address] [place] [address] documented as of this encounter Visit Diagnoses Not on filedocumented in this encounter Additional Health Concerns Assessment Noted Time PHQ-9 Depression Total Score: 11 024 9:15 AM EST documented as of this encounter Care Teams Aquarium Specialist Relationship Specialty Start Date End Date Anastasiia Vital MD [address] [place] [address] PCP - General Family Medicine 06/28/24 documented as of this encounter
[2025-07-12 14:36] LABS: MANUAL DIFF FLAG NO
[2025-07-12 14:49] LABS: Hematocrit 32.1 % (37.0-47.0); Hemoglobin 10.4 g/dl (12.0-16.0); Imm Gran Abs Auto 0.04 X10*3/uL (0.00-0.03); Imm Gran Pct Auto 0.3 % (0.0-0.4); Lymphocytes Absolute Auto 1.6 X10*3/uL (1.2-4.9); Mean Corpuscular HGB Conc 32.4 g/dl (31.0-35.0); Mean Corpuscular Hemoglobin 25.7 pg (27.0-33.0); Mean Corpuscular Volume 79.3 fL (80.0-98.0); NRBC Abs Auto 0.000 X10*3/uL (0.0-0.012); NRBC Pct Auto 0.0 /100WBC (0.0-0.2); Platelet Count 442 X10*3/uL (160-400); Red Blood Count 4.05 X10*6/uL (4.20-5.50); White Blood Count 11.6 X10*3/uL (4.8-10.8)
[2025-07-12 15:03] LABS: Alanine Aminotransferase 30 U/L (0-31); Albumin Level 4.2 g/dL (3.5-5.0); Alkaline Phosphatase 82 U/L (39-117); Anion Gap 11 (12-20); Aspartate Amino Transferase 29 U/L (5-31); Blood Urea Nitrogen 12 mg/dL (9-16); Calcium 9.0 mg/dL (8.4-10.2); Carbon Dioxide 27 mmol/L (22-29); Chloride 104 mmol/L (96-108); Cholesterol 202 mg/dL (<200); Estimated Glomerular Filt Rate > 60; HDL Cholesterol 48 mg/dL (>40); Potassium 3.6 mmol/L (3.3-5.1); Sodium 138 mmol/L (135-145); Total Protein 7.5 g/dL (6.5-8.0); Triglycerides 110 mg/dL (<150)
[2025-07-13 09:06] LABS: HBS Num1 1.77 mIU/mL (0-7.99); HBc Num1 0.08 S/CO (0.00-0.79); HBsAGNum1 0.42 S/CO (0.00-0.99); HIV Num 1 0.04 S/CO (0.00-0.99); Hepatitis B Surface Antigen Negative (Negative); ~HepC Num1 0.11 S/CO (0.00-0.79); ~Hepatitis B Surface Antibody NONREACTIVE (Nonreactive); ~Hepatitis C Antibody Nonreactive (Nonreactive)
== END 2025-07-12 11:34 | disposition home or self-care (01) ==
LOC: HO.CHCLDS 11:33
PROVIDERS: Visit Provider Family Medicine
DX: E66.812 Obesity, class 2 (principal); Z68.39 Body mass index [BMI] 39.0-39.9, adult; Z13.89 Encounter for screening for other disorder; Z01.84 Encounter for antibody response examination
CPT/HCPCS: 36415; 80053; 80061; 84443; 85025; 86704; 86706; 86803; 87340; 87389

== ENCOUNTER 2025-07-18 10:09 | Outpatient (REF) | payer MEDICAID, SELFPAY ==
--- OUTSIDE RECORDS SUMMARY | 2025-07-15 11:20 | XMS_ITS | Encounter Summary ---
Author Organization [employer] Address [address] [place] [address] Care Team Providers Care Supervisor Phosphatic Fertilizer Name Role Phone Anastasiia Vital MD Primary Care Provider [phone] Reason for Visit * Reason Comments Consult Encounter Details Date Type Department Care Team (Late st Contact Info) Description 07/15/2025 11:20 AM EDT Office Visit [facility] ADULT DENT[facility] [address] [place] [address] Angeline Duranricio [address] [place] [address] Social History Tobacco Use Types Packs/Day Years [...] AM EDT documented as of this encounter Progress Notes * Gilbert Duran - 07/15/2025 11:20 AM EDT Dental procedures in this visit D0140 - LIMITED ORAL EVALUATION - PROBLEM FOCUSED 8 (Completed) Service provider: Gilbert Duran Billing provider: Raf Nicholson DDS [id number] - CASE PRESENTATION, DETAILED AND EXTENSIVE TREATMENT PLANNING (Completed) Service provider: Gilbert Duran Billing provider: Raf Nicholson DDS Patient ID: Annalisa Lundberg is a 35 y.o. female. Time Out: Date: 07/15/2025 Location: [facility] Tooth: #8 Procedure: Exam Verified the above with patient, training program assistant, and provider. Confirmed via patient's chart, intraorally and by radiographs. Forming Tube Selector: not applicable 35 y.o. y/o female presents for limited exam with Dr. Gilbert Duran Medical history: Reviewed in EHR Vitals: There were no vitals taken for this visit. Allergies: Reviewed in EHR Medications: Reviewed in EHR Radiographs taken: AMRIK CHIEF COMPLAINT: my front tooth hurts Discussion: Patient presented with pain on tooth #8. Clinical and radiographic examination revealeda discolored #8 with a ceramic crown. Radiographically, #8 demonstrated a poorly obturated canal and a short RCT, with the presence of a periapical radiolucency (PARL). Patient was informed that retreatment of the RCT is indicated. Additionally, the patient requested a Good Niurka Estimate for a possible implant on #8. Patient stated she will discuss the cost of implant treatment with her and will then determine whether to proceed with RCT and crown or implant therapy. Patient left the dental visit in stable condition with all questions answered. NV: Giselle Provider: Dr. Gilbert Duran Dental Construction Quality Control Manager: Alise Dhaliwal Attending: Dr. Nicholson * Raf Nicholson DDS - 07/15/2025 11:20 AM EDT Reviewed. Raf Nicholson DDS documented in this encounter Plan of Treatment Upcoming Encounters Date Type Department Care Team (Late st Contact Info) Description 07/23/2025 10:30 AM EDT Office Visit [facility] ADULT D[facility] [address] [place] [address] Dion Kelly DMD [address] [place] [address] 09/30/2025 9:15 AM EST Office Visit [facility] MED [facility] PED[facility] [address] [place] [address] Anastasiia Vital MD [address] [place] [address] Scheduled Orders Name Type Priority Associated Diagnoses Orde r Schedule 8 8 SURGICAL PLACEMENT OF IMPLANT BODY - ENDOSTEAL IMPLANT Dental Routine 1 Occurrences starting 07/15/2025 8 8 CUSTOM FABRICATED ABUTMENT - INCLUDES PLACEMENT Dental Routine [address] arting 07/15/2025 8 8 ABUTMENT SUPPORTED PORCELAIN/CERAMIC CROWN Dental Routine 1 Occurr ences starting 07/15/2025 documented as of this encounter Procedures Procedure Name Priority Date/Time Associated Diagnosis Comments 8 LIMITED ORAL EVALUATION - PROBLEM FOCUSED Routine 07/15/2025 11:20 AM EDT 8 INTRAORAL - PERIAPICAL FIRST RADIOGRAPHIC IMAGE Routine 07/15/2025 11:20 AM EDT CASE PRESENTATION, DETAILED AND EXTENSIVE TREATMENT PLANNING Routine 07/15/2025 11:20 AM EDT documented in this encounter Visit Diagnoses Not on filedocumented in this encounter Additional Health Concerns Assessment Noted Time PHQ-9 Depression Total Score: 0 07/12/20 25 10:34 AM EDT documented as of this encounter Care Teams Supervisor Phosphatic Fertilizer Relationship Specialty Start Date End Date Anastasiia Vital MD [address] [place] [address] PCP - General Family Medicine 06/28/24 documented as of this encounter
--- OUTSIDE RECORDS SUMMARY | 2025-07-18 12:22 | XMS_ITS | Encounter Summary ---
Author Organization [employer] Address [address] [facility] [address] [facility] [address] 7[address] [place] [address] Care Team Providers Care Outsewer Name Role Phone Anastasiia Vital MD Primary Care Provider [phone] Encounter Details Date Type Department Care Team ([facility] st Contact Info) Description 07/15/2025 Telephone [facility] CHC MED & PEDS [address] [place] [address] Anastasiia Vital MD [address] [place] [address] Social History Tobacco Use Types Packs/Day Years [...] encounter Miscellaneous Notes * Telephone Encounter - Dori Klein RN - 07/15/2025 11:02 AM EDT Patient walked in concerned about lab results. Informed patient that provider will review results and send recommendations. Instructed patient to get iron blood work drawn before taking iron tab thatwas sent to pharmacy. Routing to provider for review and recommendations. documented in this encounter Plan of Treatment Upcoming Encounters Date Type Department Care Team (Late st Contact Info) Description 07/23/2025 10:30 AM EDT Office Visit [facility] ADULT DENTAL [address] [place] [address] Dion Kelly DMD [address] [place] [address] 09/30/2025 9:15 AM EST Office Visit [facility] MED & PEDS [address] [place] [address] Anastasiia Vital MD [address] [place] [address] documented as of this encounter Visit Diagnoses Not on filedocumented in this encounter Additional Health Concerns Assessment Noted Time PHQ-9 Depression Total Score: 0 07/12/20 25 10:34 AM EDT documented as of this encounter Care Teams Outsewer Relationship Specialty Start Date End Date Anastasiia Vital MD [address] [place] [address] PCP - General Family Medicine 06/28/24 documented as of this encounter
--- OUTSIDE RECORDS SUMMARY | 2025-07-18 12:22 | XMS_ITS | Encounter Summary ---
Author Organization [employer] Address [address] [facility] [address] 7[address] [place] [address] Care Team Providers Care Door To Door Lead Generation Name Role Phone Anastasiia Vital MD Primary Care Provider [phone] Encounter Details Date Type Department Care Team ([facility] st Contact Info) Description 07/15/2025 Telephone [facility] CH[facility] MED & PEDS [address] [place] [address] Anastasiia Vital MD [address] [place] [address] Social History Tobacco Use Types Packs/Day Years [...] as of this encounter Miscellaneous Notes * Patient Education Note - Nilam Elena RN - 07/15/2025 8:44 PM EDT Images from the original note were not included. Educaci?n del paciente Tabla de contenidos Colesterol elevado (High Cholesterol) Para arron videos y toda frost educaci?n en l?sandrine, visite https://pe.[email or web address]/[email or web address] o escanee carol c?digo QR con frost tel?fono inteligente. El acceso a carol contenido expirar?? en un a?o. Nota del m?dico Jorge. Aqu?? hay algunos materiales educativos sobre c?mo reducir el colesterol a christian?s de la dietay el estilo de elizabeth, as?? newton otra informaci?n general sobre el colesterol. Colesterol elevado High Cholesterol El colesterol elevado es isa afecci?n que se caracteriza porque la jon tiene niveles altos de isa sustancia juan j, cerosa y parecida a la grasa (colesterol). El h?gado fabrica todo el colesterol que el organismo necesita. El organismo humano necesita kody?as cantidades de colesterol para formar las c?lulas. El exceso de colesterol se obtiene de los alimentos que se consumen. La jon transporta el colesterol desde el h?gado al krystian del cuerpo. Si tiene el colesterol elevado, pueden acumularse dep?sitos (placas) en las cummins de las arterias. Las arterias son los vasossangu?neos que transportan la jon desde el coraz?n al krystian del cuerpo. Las placas causan que las arterias se estrechen y se endurezcan. Las placas de colesterol aumentan el riesgo de sufrir un infarto de miocardio y un accidente cerebrovascular. Trabaje con el m?dico para mantener las concentraciones de colesterol en un rango saludable. ?Qu?? incrementa el riesgo? Los siguientes factores pueden hacer que sea m?s propenso a desarrollar esta afecci?n: Consumir alimentos con alto contenido de grasa animal (grasa saturada) o colesterol. Tener sobrepeso. No hacer suficiente ejercicio f?sico. Tener antecedentes familiares de colesterol alto (hipercolesterolemia familiar). Consumir productos con tabaco. Tener diabetes. ?Cu?les son los signos o s?ntomas? En la mayor?a de los casos, el colesterol alto no causa ben?n s?ntoma por lo general. En los casos graves, los niveles muy altos de colesterol pueden causar: Protuberancias de grasa debajo de la piel (xantomas). Un anillo hines o emerson alrededor del centro danielle (pupila) del gisselle. ?C?mo se diagnostica? Esta afecci?n se puede diagnosticar en funci?n de los resultados de un an?lisis de jon. Si es mayor de 20?a?os, es posible que el m?dico le controle el nivel de colesterol cada 4?a?6?a?os. Los controles pueden ser m?s frecuentes si tiene el colesterol elevado u otros factores de riesgo de enfermedad card?bess. En el an?lisis de jon de colesterol, se determina lo siguiente: El colesterol ?naila?, o colesterol LDL. Carol es el principal tipo de colesterol que causa enfermedades card?acas. El nivel recomendado es de menos de?100 mg/dl (2.59?mmol/l). El colesterol ?zambrano?, o colesterol HDL. El HDL ayuda a proteger contra la enfermedad card?bess porque limpia las arterias y arrastra el LDL al h?gado para que lo procese. El nivel recomendado de HDL es de?60 mg/dl (1.55?mmol/l) o m?s. Triglic?ridos. Estos son grasas que el organismo puede almacenar o quemar newton danni de energ?a. El nivel recomendado es de menos de?150 mg/dl (1.69?mmol/l). Colesterol total. Mide la cantidad total de colesterol en la jon, e incluye el colesterol LDL, el colesterol HDL y los triglic?ridos. El nivel recomendado es de menos de?200 mg/dl (5.17?mmol/l). ?C?mo se trata? El tratamiento para el colesterol alto comienza con cambios en el estilo de elizabeth, tales newton dieta y ejercicio. Cambios en la dieta. Es posible que le indiquen que consuma alimentos con m?s fibra y menos grasas saturadas o az?car agregada. Cambios en el estilo de elizabeth. Estos pueden incluir hacer actividad f?emily con regularidad, mantenerun peso saludable y dejar de consumir productos con tabaco. Medicamentos. Estos se administran cuando los cambios en la dieta y en el estilo de elizabeth no dhillon sido eficaces. Es posible que le receten medicamentos llamados estatinas para bajar rhianna niveles de colesterol. Siga estas instrucciones en frost casa: Comida y bebida Siga isa dieta saludable y equilibrada. Esta dieta incluye lo siguiente: ? Porciones diarias de frutas y verduras frescas, congeladas o enlatadas. ? Porciones diarias de alimentos integrales con alto contenido de fibra. ? Alimentos con bajo contenido de grasas saturadas y grasas trans. Estos incluyen carne de ave y pescado sin piel, vega de carne magros y productos l?cteos descremados. ? Isa variedad de pescado, especialmente pescado graso que contenga ?cidos grasos omega 3. Prop?ngase comer pescado al menos dos veces por semana. Evite los alimentos y las bebidas que tengan az?car agregada. Use m?todos de cocci?n saludables, newton asar, grillar, hervir, hornear, escalfar, cocer al vapor y saltear. No fr?a los alimentos excepto para saltearlos. Si lasha alcohol: ? Limite la cantidad que lasha a lo siguiente: ? De 0 a 1 medida por d?a para las mujeres que no est?n embarazadas. ? De 0 a 2 medidas por d?a para los hombres. ? Sepa cu?nta cantidad de alcohol hay en las bebidas. En los [place], isa medida equivale a isa botella de cerveza de 12?oz (355?ml), un vaso de vino de 5?oz (148?ml) o un vaso de isa bebida alcoh?lica de jessica graduaci?n de 1??oz (44?ml). Estilo de elizabeth Zakiya ejercicio con regularidad. Trate de hacer un total de 150 minutos de actividad f?emily por semana. Aumente la cantidad de ejercicio f?sico que realiza mediante actividades newton la jardiner?a, salir a caminar o usar las escaleras. No consuma ben?n producto que contenga nicotina o tabaco. Estos productos incluyen cigarrillos, tabaco para mascar y aparatos de vapeo, newton los cigarrillos electr?nicos. Si necesita ayuda para dejar de consumir estos productos, consulte al m?dico. Indicaciones generales Use los medicamentos de venta ade y los recetados solamente newton se lo haya indicado el m?dico. Concurra a todas las visitas de seguimiento. [place] es importante. D?nde buscar m?s informaci?n [place] Heart Association (Asociaci?n Estadounidense del Coraz?n): www.heart.org National Heart, Lung, and Blood [place] (Instituto Nacional del Coraz?n, los Pulmones y la Jon): www.nhlbi.nih.gov Comun?quese con un m?dico si: Tiene dificultad para alcanzar o mantener isa alimentaci?n betty y un peso saludable. Est?? por comenzar un programa de ejercicios. No puede dejar de fumar. Solicite ayuda de inmediato si: Siente dolor en el pecho. Tiene dificultad para respirar. Tiene molestias o dolor en la jake?bula, el kaela, la espalda, los hombros o los brazos. Tiene s?ntomas de un accidente cerebrovascular. ?BE FAST? es isa manera f?cil de recordar los principales signos de advertencia de un accidente cerebrovascular: ? B: Balance (equilibrio). Los signos son mareos, dificultad repentina para caminar o p?rdida del equilibrio. ? E - Eyes (ojos). Los signos son problemas para arron o un cambio repentino en la visi?n. ? F: Face (marry). Los signos son debilidad repentina o entumecimiento del marry, o el marry o el p?rpado que se caen hacia un lado. ? A: Arms (brazos). Los signos son debilidad o entumecimiento en un brazo. [place] sucede de repente ygeneralmente en un lado del cuerpo. ? S: Speech (habla). Los signos son dificultad para hablar, hablar arrastrando las palabras o dificultad para comprender lo que las personas dicen. ? T: Time (tiempo). Es tiempo de llamar al servicio de emergencias. Anote la hora a la que comenzaron los s?ntomas. Presenta otros signos de un accidente cerebrovascular, newton los siguientes: ? Dolor de bo s?bito e intenso que no tiene causa aparente. ? N?useas o v?mitos. ? Convulsiones. Estos s?ntomas pueden representar un problema grave que constituye isa emergencia. No espere a arron si los s?ntomas desaparecen. Solicite atenci?n m?dica de inmediato. Comun?quese con el servicio de emergencias de frost localidad (911 en los [place]). No conduzca por rhianna propios medios hasta el h ospital. Resumen Las placas de colesterol aumentan el riesgo de sufrir un infarto de miocardio y un accidente cerebrovascular. Trabaje con el m?dico para mantener las concentraciones de colesterol en un rango saludable. Siga isa dieta saludable y equilibrada, zakiya ejercicio con regularidad y mantenga un peso saludable. No consuma ben?n producto que contenga nicotina o tabaco. Estos productos incluyen cigarrillos, tabaco para mascar y aparatos de vapeo, newton los cigarrillos electr?nicos. Obtenga ayuda de inmediato si tiene cualquier s?ntoma de un accidente cerebrovascular. Esta informaci?n no tiene newton fin reemplazar el consejo del m?dico. Aseg?rese de hacerle al m?dicocualquier pregunta que tenga. Document Released: 2006-10-10 Document Updated: 2021-12-28 Document Reviewed: 2021-12-28 [employer] Patient Education ? 2024 [employer]. * Telephone Encounter - Nilam Elena RN - 07/15/2025 4:41 PM EDT Patient education about cholesterol management sent via [employer] documented in this encounter Plan of Treatment Upcoming Encounters Date Type Department Care Team (Late st Contact Info) Description 07/23/2025 10:30 AM EDT Office Visit [facility] ADULT DENTAL [address] [place] [address] Dion Kelly DMD [address] [place] [address] 09/30/2025 9:15 AM EST Office Visit [facility] MED & PEDS [address] [place] [address] Anastasiia Vital MD [address] [place] [address] documented as of this encounter Visit Diagnoses Not on filedocumented in this encounter Additional Health Concerns Assessment Noted Time PHQ-9 Depression Total Score: 0 07/12/20 25 10:34 AM EDT documented as of this encounter Care Teams Door To Door Lead Generation Relationship Specialty Start Date End Date Anastasiia Vital MD [address] [place] [address] PCP - General Family Medicine 06/28/24 documented as of this encounter
--- OUTSIDE RECORDS SUMMARY | 2025-07-18 12:23 | XMS_ITS | Encounter Summary ---
Author Organization [employer] Address [address] [place] [address] Care Team Providers Care Plastics Plater Name Role Phone Anastasiia Vital MD Primary Care Provider [phone] Encounter Details Date Type Department Care Team (Latest Contact Info) Description 07/15/2025 Travel Social History Tobacco Use Types Packs/Day [...] [facility] ADULT DENTAL [address] [place] [address] Dion Kelly DMD [address] [place] [address] 09/30/2025 9:15 AM EST Office Visit [facility] MED & PEDS [address] [place] [address] Anastasiia Vital MD [address] [place] [address] documented as of this encounter Visit Diagnoses Not on filedocumented in this encounter Additional Health Concerns Assessment Noted Time PHQ-9 Depression Total Score: 0 07/12/20 25 10:34 AM EDT documented as of this encounter Care Teams Plastics Plater Relationship Specialty Start Date End Date Anastasiia Vital MD [address] [place] [address] PCP - General Family Medicine 06/28/24 documented as of this encounter
--- OUTSIDE RECORDS SUMMARY | 2025-07-18 12:23 | XMS_ITS | Encounter Summary ---
Author Organization [employer] Address [address] [facility] 7 [place] [address] Care Team Providers Care Business Services Sales Representative Name Role Phone Anastasiia Vital MD Primary Care Provider [phone] Encounter Details Date Type Department Care Team ([facility] st Contact Info) Description 07/17/2025 Telephone [employer] Information Management [address] [place] [address] Anastasiia Vital MD [address] [place] [address] Social History Tobacco Use Types Packs/Day Years [...] encounter Miscellaneous Notes * Telephone Encounter - Anastasiia Vital MD - 07/18/2025 9:52 AM EDT Note signed. Thanks! * Telephone Encounter - Marylou Lopez - 07/17/2025 12:[address]T Good morning Dr. Vital, please sign notes from 07/12 in order to proceed with referral. Thank you. documented in this encounter Plan of Treatment Upcoming Encounters Date Type Department Care Team (Late st Contact Info) Description 07/23/2025 10:30 AM EDT Office Visit [facility] ADULT DENTAL [address] [place] [address] Dion Kelly DMD [address] [place] [address] 09/30/2025 9:15 AM EST Office Visit [facility] MED & PEDS [address] [place] [address] Anastasiia Vital MD [address] [place] [id number] documented as of this encounter Visit Diagnoses Not on filedocumented in this encounter Additional Health Concerns Assessment Noted Time PHQ-9 Depression Total Score: 0 07/12/20 25 10:34 AM EDT documented as of this encounter Care Teams Business Services Sales Representative Relationship Specialty Start Date End Date Anastasiia Vtial MD [address] [place] [address] PCP - General Family Medicine 06/28/24 documented as of this encounter
--- OUTSIDE RECORDS SUMMARY | 2025-07-18 12:23 | XMS_ITS | Encounter Summary ---
Author Organization [employer] Address [address] [facility] 7 [place] [address] Care Team Providers Care Facing Machine Operator Name Role Phone Anastasiia Vital MD Primary Care Provider Encounter Details Date Type Department Care Team (Late st Contact Info) Description 07/17/2024 Orders Only [facility] Information Management [address] [place] [address] Provider, MD [place] Social History Tobacco Use [...] Description 07/23/2025 10:30 AM EDT Office Visit [facility] ADULT DENTAL [address] [place] [address] Dion Kelly DMD [address] [place] [address] 09/30/2025 9:15 AM EST Office Visit [facility] MED & PEDS [address] [place], [place] [phone] Anastasiia Vital MD [address] [place] [address] documented as of this encounter Procedures Procedure [...] documented as of this encounter Care Teams Facing Machine Operator Relationship Specialty Start Date End Date Anastasiia Vital MD [address] [place] [id number] PCP - General Family Medicine 06/28/24 documented as of this encounter
--- OUTSIDE RECORDS SUMMARY | 2025-07-18 12:23 | XMS_ITS | Encounter Summary ---
Author Organization [employer] Address [address] [place] [address] Care Team Providers Care Contact Lens Fitter Name Role Phone Anastasiia Vital MD Primary Care Provider [phone] Encounter Details Date Type Department Care Team (Latest Contact Info) Description 07/15/2025 Results Follow-Up [facility] MED & PEDS [address] [place] [address] Anastasiia Vital MD [address] [place] [address] POCT Rapid Strep A OSOM, CBC auto differential, Comprehensive Metabolic Panel, Additional followed-up results: 7 Social History Tobacco Use Types Packs/Day Years [...] 10:30 AM EDT Office Visit [facility] ADULT DENTAL [address] [place] [address] Dion Kelly DMD [address] [place] [address] 09/30/2025 9:15 AM EST Office Visit [facility] MED & PEDS [address] [place] [address] Anastasiia Vital MD [address] [place] [address] Scheduled Orders Name Type Priority Associated Diagnoses Orde r Schedule Iron And Total Iron Binding Capacity Lab Routine Microcytosis Expected: 07/15/2025, Expires: 07/15/2026 Ferritin Lab Routine Microcytosis Expected: 07/15/2025 (Approximate), Expires: 07/15/2026 documented as of this encounter Visit Diagnoses Diagnosis Microcytosis- Primary Other abnormality of red blood cells documented in this encounter Additional Health Concerns Assessment Noted Time PHQ-9 Depression Total Score: 0 07/12/20 25 10:34 AM EDT documented as of this encounter Care Teams Contact Lens Fitter Relationship Specialty Start Date End Date Anastasiia Vital MD [address] [place] [address] PCP - General Family Medicine 06/28/24 documented as of this encounter
--- OUTSIDE RECORDS SUMMARY | 2025-07-18 12:23 | XMS_ITS | Encounter Summary ---
Author Organization [employer] Address [address] [place] [address] Care Team Providers Care Infection Preventionist Name Role Phone Anastasiia Vital MD Primary Care Provider [phone] Reason for Visit * Reason Onset Date Comments Referral 07/09/2024 Encounter Details Date Type Department Care Team ([facility] st Contact Info) Description 07/09/2024 Telephone [facility] MED & PEDS [address] [place] [address] Anastasiia Vital MD [address] [place] [address] Referral Social History Tobacco Use Types Packs/Day [...] PM EDT Report printed and handed to building specialist to send to Neuro. * Telephone Encounter - Marylou Lopez - 07/20/2024 3:35 PM EDT Can you please check [facility] records for an MRI of the brain [...] Requested for referral to be sent to [facility]. documented in this encounter Plan of Treatment Upcoming Encounters Date Type Department Care Team (Late st Contact Info) Description 07/23/2025 10:30 AM EDT Office Visit [facility] ADULT DENTAL [address] [place] [address] Dion Kelly DMD [address] [place] [address] 09/30/2025 9:15 AM EST Office Visit [facility] MED & PEDS [address] [place] [address] Anastasiia Vital MD [address] [place] [address] documented as of this encounter Visit Diagnoses Not on filedocumented in this encounter Additional Health Concerns Assessment Noted Time PHQ-9 Depression Total Score: 16 024 11:08 AM EDT documented as of this encounter Care Teams Infection Preventionist Relationship Specialty Start Date End Date Anastasiia Vital MD [address] [place] [address] PCP - General Family Medicine 06/28/24 documented as of this encounter
--- OUTSIDE RECORDS SUMMARY | 2025-07-18 12:23 | XMS_ITS | Clinical Summary ---
Author Organization [employer] Address [address] [facility] [address] [place] [address] Care Team Providers Care Route Jumper Name Role Phone Anastasiia Vital MD Primary Care Provider [phone] Allergies Active Allergy Reactions Criticality Noted Date [...] Sodium Fluoride 1.1 % creamIndicatio ns:Dental caries [place] teeth for 2 minutes, morning and night. Spit, do not rinse. Do not eat or drink anything for 30 minutes following use. 112 g 3 07/08/20 25 Active gabapentin (Neurontin) 100 MG capsule Take 1 capsule (100 mg) by mouth every 8 (eight) hours. 90 capsule 1 07/12/20 25 Active ferrous gluconate (Fergon) 324 (38 Fe) MG tabletIndicati ons:Microcytos is Take 1 tablet (324 mg) by mouth with breakfast. 90 tablet 1 07/15/20 25 Active cholecalcifero l (Vitamin D-3) 50 MCG (2000 UT) capsule Take 1 capsule (50 mcg) by mouth Once per day. 120 capsule 3 08/03/20 24 025 Discontinued(R eorder (will not trigger notification to Pharmacy)) sertraline (Zoloft) 50 MG tabletIndicati ons:Anxiety,De pression, unspecified depression type Take 1 tablet (50 mg) by mouth Once per day. 90 tablet 1 08/03/20 24 025 Discontinued(R eorder (will not trigger notification to Pharmacy)) hydrOXYzine pamoate (Vistaril) 25 MG capsuleIndicat ions:Anxiety,D epression, unspecified depression type Take 1 capsule (25 mg) by mouth every 6 (six) hours if needed for anxiety. 90 capsule 1 08/03/20 24 025 Discontinued(R eorder (will not trigger [...] Date Fibromyalgia 07/12/2025 Allergic contact blepharoconjunctivitis 12/25/19 25 Assessment & Plan (12/24/2024 10:29 AM EST): [...] Encounters Date Type Department Care Team Description 07/17/2025 [place] [address] [place] [phone] Anastasiia Vital MD 07/15/2025 11:20 AM EDT Office Visit [facility] [address] [place] [address] Gilbert Duran 07/15/2025 Telephone [facility] [address] [place] [address] Anastasiia Vital MD 07/15/2025 Telephone [facility] [address] [place] [address] Anastasiia Vital MD 07/15/2025 Travel 07/15/2025 Results Follow-Up [facility] [address] [place] [address] Anastasiia Vital MD POCT Rapid Strep A OSOM, CBC auto differential, Comprehensive Metabolic Panel, Additional followed-up results: 7 07/12/2025 10:30 AM EDT Office Visit [facility] [address] [place] [address] Anastasiia Vital MD Sore throat (Primary Dx); Plantar fasciitis; Fibromyalgia; Encounter for health-related screening; Class 2 severe obesity with serious comorbidity and body mass index (BMI) of 39.0 to 39.9 in adult, unspecified obesity type ([facility]) 07/12/2025 Travel 07/08/2025 10:00 AM EDT Office Visit [facility] [address] [place] [address] Casey Lacey Dental calculus (Primary Dx); Dental caries 07/08/2025 Telephone [facility] [address] [place] [address] Anastasiia Vital MD 07/05/2025 Patient Outreach [facility] [address] [place] [address] [phone] Anastasiia Vital MD Pre-visit Planning ([facility] screening completed on 05/01/25) 07/05/2025 Refill [facility] [address] [place] [address] Anastasiia Vital MD Anxiety; Depression, unspecified depression type 05/23/[address] [phone] Anastasiia Vital MD Nurse Triage 05/23/[address] [phone] Anastasiia Vital MD Referral 05/20/2025 Patient Outreach [address] [phone] Anastasiia Vital MD Pre-visit Planning (SDOH screening completed on 05/01/25) 05/01/2025 Patient Outreach [address] [phone] Anastasiia Vital MD Pre-visit Planning (SDOH screening [...] [facility] [address] [place] [address] Dion Kelly DMD [address] [place] [address] 09/30/2025 9:15 AM EST Office Visit [facility] [address] [place] [address] Anastasiia Vital MD [address] [place] [address] Health Maintenance Due Date Last Done Comments Family Planning (PISQ) 01/04/2003 HPV Vaccines (1 - 3-dose series) 01/04/2003 Hepatitis B Vaccines (1 of 3 - 19+ 3-dose series) 01/04/2007 COVID-19 Vaccine ( - 2023-2 5 season) 2025 Influenza Vaccine (#1) 2025 , 08/13/2019 Alcohol/Substance Use Screening 10/01/2025 10/01/2024 Dental X-Ray: Bitewings 10/24/2025 10/23/20 24, 11/26/2019 Dental Oral Exam 01/06/2026 07/08/2025, 11/26/2019 Dental Prophylaxis 01/06/2026 07/08/2025, 10/23/2024 SDOH Screening 05/01/2026 05/01/2025 Depression Screening 07/12/2026 07/12/2025, 07/12/2025 Disability Screening 07/12/2026 07/12/2025 Tobacco Screening 07/15/2026 07/15/2025 Dental X-Ray: Full Mouth 10/24/2027 024, 11/26/2019 Cervical Cancer Screening 10/10/2028 HPV/Cotest 10/10/2028 07/04/2019 Pap Smear 10/10/2028 10/10/2023, 10/10/2023, 10/10/2023 Lipid Panel 07/12/2030 07/12/2025, 06/29/2024 DTaP/Tdap/Td Vaccines (3 - T d or Tdap) 08/24/2031 08/24/2021, 11/06/2019 Zoster Vaccines (1 of 2) 01/04/2038 RSV Patients and Patients Aged 60 years or older (1 - 1-dose 75+ series) 01/04/2063 HIV Screening Completed 07/12/2025 Hepatitis C Screening Completed 07/12/2025 HIB Vaccines Aged Out No longer eligi [...] Name Priority Date/Time Associated Diagnosis Comments 8 INTRAORAL - PERIAPICAL FIRST RADIOGRAPHIC IMAGE Routine 07/15/2025 11:20 AM EDT CASE PRESENTATION, DETAILED AND EXTENSIVE TREATMENT PLANNING Routine 07/15/2025 11:20 AM EDT 8 LIMITED ORAL EVALUATION - PROBLEM FOCUSED Routine 07/15/2025 11:20 AM EDT HEPATITIS B CORE AB TOTAL Routine 07/12/2025 11:34 AM EDT Encounter for health-related screening HEPATITIS B SURFACE ANTIGEN, EIA Routine 07/12/2025 11:34 AM EDT Encounter for health-related screening HEPATITIS B SURFACE ANTIBODY, QUALITATIVE Routine 07/12/2025 11:34 AM EDT Encounter for health-related screening HEPATITIS C AB W/REFL TO HCV RNA, QN, PCR Routine 07/12/2025 11:34 AM EDT Encounter for health-related screening HIV 1/2 ANTIGEN/ANTIBODY, FOURTH GENERATION W/RFL Routine 07/12/2025 11:34 AM EDT Encounter for health-related screening LIPID PANEL, STANDARD Routine 07/12/2025 11:34 AM EDT Class 2 severe obesity with serious comorbidity and body mass index (BMI) of 39.0 to 39.9 in adult, unspecified obesity type (CMS/HCC) TSH W/REFLEX TO FT4 Routine 07/12/2025 1 1:34 AM EDT Class 2 severe obesity with serious comorbidity and body mass index (BMI) of 39.0 to 39.9 in adult, unspecified obesity type (CMS/HCC) COMPREHENSIVE METABOLIC PANEL Routine 07/12/2025 11:34 AM EDT Class 2 severe obesity with serious comorbidity and body mass index (BMI) of 39.0 to 39.9 in adult, unspecified obesity type (CMS/HCC) CBC WITH AUTO DIFFERENTIAL Routine 07/12/2025 11:34 AM EDT Class 2 severe obesity with serious comorbidity and body mass index (BMI) of 39.0 to 39.9 in adult, unspecified obesity type (CMS/HCC) POCT RAPID STREP A Routine 07/12/2025 11 [...] RADIOGRAPHIC IMAGES Routine 10/23/2024 10:00 AM EST HM PAP/HPV Routine 10/10/2023 12:53 PM EST [facility] HISTORICAL HPV MRNA E6/E7 Routine 07/04/2019 3:41 PM EDT from Last 3 Months or Most Recently Relevant to Health Maintenance Results * TSH W/Reflex to FT4 (07/12/2025 11:34 AM EDT) TSH reflex Free T4 0.90 0.32 - 4.0 uIU/mL [facility] Blood Venous blood specimen / Unknown 07/12/2025 11:34 AM EDT 07/12/2025 2:25 PM EDT us Anasatsiia Vital MD LAB BLOOD ORDERABLES Final Re sult [facility] [address] [place] [address] [phone] * (ABNORMAL) CBC auto differential (07/12/2025 11:34 AM EDT) White Blood Count 11.6(H) 4.8 - 10.8 X10*3/uL [facility] Red Blood Count 4.05(L) 4.20 - 5.50 X10*6/uL [facility] Hemoglobin 10.4(L) 12.0 - 16.0 g/dl [facility] Hematocrit 32.1(L) 37.0 - 47.0 % [facility] Mean Corpuscular Volume 79.3(L) 80.0 - 98.0 fL [facility] Mean Corpuscular Hemoglobin 25.7(L) 27.0 - 33.0 pg [facility] Mean Corpuscular HGB Conc 32.4 31.0 - 35.0 g/dl [facility] Red Cell Distribution Width 14.6 11.0 - 16.0 % [facility] Platelet Count 442(H) 160 - 400 X10*3/uL [facility] Mean Platelet Volume 12.7(H) 9.4 - 12.3 fL [facility] Neutrophils Percent Auto 79.1(H) 45 - 73 % [facility] Imm Gran Pct Auto 0.3 0.0 - 0.4 % [facility] Lymphocytes Percent Auto 13.8(L) 20 - 40 % [facility] Monocytes Percent Auto 5.9 2 - 11 % [facility] Eosinophils Percent Auto 0.3 0 - 4 % [facility] Basophils Percent Auto 0.6 0 - 2 % [facility] NRBC Pct Auto 0.0 0.0 - 0.2 /100WBC [facility] Neutrophils Absolute Auto 9.2(H) 2.0 - 8.3 x10*3/uL [facility] Imm Gran Abs Auto 0.04(H) 0.00 - 0.03 X10*3/uL [facility] Lymphocytes Absolute Auto 1.6 1.2 - 4.9 X10*3/uL [facility] Monocytes Absolute Auto 0.7 0.1 - 1.2 X10*3/uL [facility] Eosinophils Absolute Auto 0.0 0.0 - 0.4 X10*3/uL [facility] Basophils Absolute Auto 0.1 0.0 - 0.2 X10*3/uL [facility] NRBC Abs Auto 0.000 0.0 - 0.012 X10*3/uL [facility] Blood Venous blood specimen / Unknown 07/12/2025 11:34 AM EDT 07/12/2025 2:25 PM EDT us Anastasiia Vital MD LAB BLOOD ORDERABLES Final Re sult [facility] [address] [place] [phone] * Hepatitis C Antibody with Reflex to HCV, RNA, Quantitative, Real-Time PCR (07/12/2025 11:34 AM EDT) Hepatitis C Antibody Nonreactive Nonreactive [facility] Comment:Antibodies to HCV no t detected; does not exclude early acuteHCV infection. Blood Venous blood specimen / Unknown 07/12/2025 11:34 AM EDT 07/12/2025 2:25 PM EDT Anastasiia Vital MD LAB BLOOD ORDERABLES Final Re sult Performing Organization Address City/[facility]/ZIP Co de Phone Number [facility] [address] [place] [phone] * Hepatitis B surface antigen, EIA (07/12/2025 11:34 AM EDT) Hepatitis B Surface Ag Negative Negative [facility] Blood Venous blood specimen / Unknown 07/12/2025 11:34 AM EDT 07/12/2025 2:25 PM EDT Anastasiia Vital MD LAB BLOOD ORDERABLES Final Re sult Performing Organization Address [facility] Co de Phone Number [facility] [address] [place] [phone] * Hepatitis B Core Antibody, Total (07/12/2025 11:34 AM EDT) Hepatitis B Core Antibody Nonreactive Nonreactive [facility] Blood Venous blood specimen / Unknown 07/12/2025 11:34 AM EDT 07/12/2025 2:25 PM EDT Anastasiia Vital MD LAB BLOOD ORDERABLES Final Re sult Performing Organization Address [facility] Co de Phone Number [facility] [address] [place] [phone] * HIV-1/2 Antigen and Antibodies, Fourth Generation, with Reflexes (07/12/2025 11:34 AM EDT) HIV AB/AG Nonreactive Nonreactive [facility] Comment:HIV-1 p24 Ag and/or HIV-1/HIV-2 Ab not detected.A test result that is nonreactive does not exclude thepossibility of exposure to or infection with HIV-1 and/orHIV-2. Nonreactive results in this assay for individualswith prior exposure to HIV-1 and/or HIV-2 may be due toantigen and antibody levels that are below the limit ofdetection of this assay.The [employer]oSphere HIV Ag/Ab Combo assay result andsupplemental assay results should be interpreted inconjunction with the patient's clinical presentation,history and other laboratory results. If the results areinconsistent with clinical evidence, additional testing issuggested to confirm the result. Blood Venous blood specimen / Unknown 07/12/2025 11:34 AM EDT 07/12/2025 2:25 PM EDT Anastasiia Vital MD LAB BLOOD ORDERABLES Final Re sult Performing Organization Address [facility] Co de Phone Number [facility] [address] [place] [phone] * Hepatitis B Surface Antibody, Qualitative (07/12/2025 11:34 AM EDT) ~Hepatitis B Surface Antibody NONREACTIVE Nonreactive [facility] Comment:Nonreactive: < 8.00 mIU/mL Blood Venous blood specimen / Unknown 07/12/2025 11:34 AM EDT 07/12/2025 2:25 PM EDT Anastasiia Vital MD LAB BLOOD ORDERABLES Final Re sult Performing Organization Address [facility] Co de Phone Number [facility] [address] [place] [phone] * (ABNORMAL) Lipid Panel, Standard (07/12/2025 11:34 AM EDT) Triglycerides 110 <150 mg/dL [facility] Comment:Desirable Triglyceri de: less than 150 mg/dLBorderline High Triglyceride 150-199 mg/dLHigh Triglyceride: 200-499 mg/dLVery High Triglyceride: greater than or equal to 5OO mg/dL Cholesterol 202(H) <200 mg/dL [facility] Comment:Desirable Cholestero l: less than 200 mg/dLBorderline High Cholesterol: 200-239 mg/dLHigh Cholesterol: greater than 239 mg/dL LDL Cholesterol Calculated 132(H) <100 mg/dL [facility] Comment:Desirable LDL: less than 100 mg/dLNear Optimal/Above Optimal LDL: 110- 129 mg/dLBorderline High LDL: 130-159 mg/dLHigh LDL: 160-189 mg/dLVery High LDL: greater than or equal to 190 mg/dL HDL Cholesterol 48 >40 mg/dL [facility] Comment:Desirable HDL: great er than 40 mg/dL Note: This HDL assay may give artificially low results in patients with liver disease. Blood Venous blood specimen / Unknown 07/12/2025 11:34 AM EDT 07/12/2025 2:25 PM EDT us Anastasiia Vital MD LAB BLOOD ORDERABLES Final Re sult [facility] [address] [place] [phone] * (ABNORMAL) Comprehensive Metabolic Panel (07/12/2025 11:34 AM EDT) Sodium 138 135 - 145 mmol/L [facility] Potassium 3.6 3.3 - 5.1 mmol/L [facility] Chloride 104 96 - 108 mmol/L [facility] Carbon Dioxide 27 22 - 29 mmol/L [facility] Anion Gap 11(L) 12 - 20 [facility] Urea Nitrogen (BUN) 12 9 - 16 mg/dL [facility] Creatinine, Serum 0.69 0.5 - 1.4 mg/dL [facility] Estimated Glomerular Filt Rate >60 [facility] Comment:Chronic Kidney Disea se: Estimated GFR < 60 mL/min/[id number] Kidney Disease: Estimated GFR < 15 mL/min/1.73m2 Glucose 108 60 - 115 mg/dL [facility] Calcium 9.0 8.4 - 10.2 mg/dL [facility] Bilirubin, Total 0.4 0.0 - 1.0 mg/dL [facility] Aspartate Amino Transferase 29 5 - 31 U/L [facility] Alanine Aminotransferase 30 0 - 31 U/L [facility] Total Protein 7.5 6.5 - 8.0 g/dL [facility] Albumin Level 4.2 3.5 - 5.0 g/dL [facility] Alkaline Phosphatase 82 39 - 117 U/L [facility] Blood Venous blood specimen / Unknown 07/12/2025 11:34 AM EDT 07/12/2025 2:25 PM EDT Anastasiia Vital MD LAB BLOOD ORDERABLES Final Re sult [facility] [address] [place] [phone] * POCT Rapid Strep A OSOM (07/12/2025 11:01 AM EDT) [facility] Rapid Strep A Screen Negative Negative, None Detected QC Media Lot # [id number] Lot# Expiration Date [id number] Swab 07/12/2025 11:0 1 AM EDT Anastasiia Vital MD POINT OF CARE TEST ENTER/EDIT ORDERABLES Final Result * HM PAP/HPV (10/10/2023 12:53 PM EST) Historical Provider HEALTH MAINTENANCE Final Result * (ABNORMAL) HPV mRNA E6/E7 (07/04/2019 3:41 PM EDT) Pathologist [facility] HPV mRNA E6/E7 DETECTED (AA) NOT DETECTED [facility] Comment: This test was performed using the APTIMA(R) HPV Assay ([employer] This assay detects E6/E7 viral messenger RNA (mRNA) from 14 high-risk HPV types (16,18,31,33,35,39,45,51, 52,56,58,59,66,68). For additional information please refer to: http://education.[employer]faq/DFW009x5 (This link is being provided for informational/ educational purposes only.) The analytical performance characteristics of this assay have been determined by [facility] [place], [place]. The modifications have not been cleared or approved by the FDA. This assay has been validated pursuant to the CLIA regulations and is used for clinical purposes. Test Performed by [employer], [facility], [address] [place] [address] Bryce Watt M.D., Ph.D., Director of Laboratories , CLIA [id number] Please note: Effective 07/05/2016, HPV testing will be performed using [employer]'s APTIMA test which targets mRNA. Detecting mRNA instead of DNA, as in older methods, offers significant improvements in specificity. 07/04/2019 3:41 PM EDT us Carissa Duke CNM HISTORICAL/NON ORDERABLE LABS Final Result Performing Organization Address City/State/[facility] Co de Phone Number [facility] [address] from Last 3 Months or Most Recently Relevant to Health Maintenance Insurance [id number] [facility] MEDICAID STAND ADULT Care Teams Route Jumper Relationship Specialty Start Date End Date Anastasiia Vital MD [address] [place] [phone] PCP - General Family Medicine 06/28/24
--- OUTSIDE RECORDS SUMMARY | 2025-07-18 12:23 | XMS_ITS | Encounter Summary ---
Author Organization [employer] Address [address] [facility] 7 [place] [address] Care Team Providers Care Stable Cleaner Name Role Phone Anastasiia Vital MD Primary Care Provider [phone] Encounter Details Date Type Department Care Team (Late st Contact Info) Description 08/01/2024 Orders Only [facility] [address] [place] [address] Provider, MD [place] Social History Tobacco Use [...] Description 07/23/2025 10:30 AM EDT Office Visit [facility] [address] [place] [address] Dion Kelly, [place]MA [address] [place] [address] 09/30/2025 9:15 AM EST Office Visit [facility] [address] [place], [place] [phone] Anastasiia Vital MD [address] [place] [address] documented as of this encounter Procedures Procedure Name Priority Date/Time Associated Diagnosis Comments THIN PREP PAP Routine 10/10/2023 2:09 PM EST THIN PREP PAP Routine 10/10/2023 2:08 PM EST documented in this encounter Results * THIN PREP PAP (10/10/2023 2:09 PM EST) us Historical Provider LAB CYTOLOGY ORDERABLES F inal Result * THIN PREP PAP (10/10/2023 2:08 PM EST) us Historical Provider LAB CYTOLOGY ORDERABLES F inal Result documented in this encounter Visit Diagnoses Not on filedocumented in this encounter Additional Health Concerns Assessment Noted Time PHQ-9 Depression Total Score: 16 024 11:08 AM EDT documented as of this encounter Care Teams Stable Cleaner Relationship Specialty Start Date End Date Anastasiia Vital MD [address] [place] [phone] PCP - General Family Medicine 06/28/24 documented as of this encounter
[2025-07-18 15:22] LABS: Iron 50 mcg/dL (30-160); Percent Iron Saturation 15 % (15-50); Total Iron Binding Capacity 324 mcg/dL (228-428); Unsaturated Iron Binding 274 ug/dL
[2025-07-18 15:26] LABS: Ferritin 19 ng/mL (10-122)
== END 2025-07-18 10:10 | disposition home or self-care (01) ==
LOC: HO.CHCLDS 10:09
PROVIDERS: Visit Provider Family Medicine
DX: R71.8 Other abnormality of red blood cells (principal)
CPT/HCPCS: 36415; 82728; 83540

== ENCOUNTER 2025-09-12 17:52 | Outpatient (REF) | payer MEDICAID, SELFPAY ==
--- OUTSIDE RECORDS SUMMARY | 2025-09-12 10:00 | XMS_ITS | Encounter Summary ---
Author Organization [employer] Address [address] [place] [address] Care Team Providers Care Log Data Technician Name Role Phone Anastasiia Vital MD Primary Care Provider [phone] Encounter Details Date Type Department Care Team (Late st Contact Info) Description 09/12/2025 10:00 AM EST Office Visit [facility] [address], [place] [phone] Sirena Severino DO [address] [place], [place] [phone] Strep pharyngitis (Primary Dx); Vaginal irritation; Labial lesion Social History Tobacco Use Types Packs/Day Years [...] Sign Reading Time Taken Comments Blood Pressure 132/70 09/12/2025 11:08 AM EST Pulse 89 09/12/2025 11:08 AM EST Temperature 36.9 C (98.4 F) 09/12/2025 11:08 AM EST Respiratory Rate 20 09/12/2025 11:08 AM EST Oxygen Saturation 98% 09/12/2025 11:08 AM EST Inhaled Oxygen Concentration - - Weight 101 kg (223 lb) 09/12/2025 11:08 AM EST Height 162.6 cm (5' 4 ) 09/12/2025 11:08 AM EST Body Mass Index 38.28 09/12/2025 11:08 AM EST documented in this encounter Progress Notes * Sirena Severino DO - 09/12/2025 10:00 AM EST SUBJECTIVE: Annalisa Lundberg is a 35 y.o. year old female who presents for sick visit. HPI She comes to [place] c/o ST, cough and vaginal itching. Her son was seen here the other day and tested positive for strep. Her was seen this morning and tested positive for strep and Flu A. Sore throat and throat inflammation - Reports throat pain and inflammation for 3 days prior to visit - Reports chronic cough and phlegm production - Uses allergy medication (Zyrtec) and nasal spray as needed for symptoms - Denies fever - Denies ear pain or nasal congestion - Denies headache External genital irritation - Reports external irritation and inflammation in the genital area for approximately 1 week - Describes location as in the crease and on both sides - No vaginal discharge reported - Denies recent antibiotic use - No dyspareunia - No new sexual partners - Denies urinary symptoms Skin bumps in groin area - Reports bumps in the groin area, no discomfort - She has bump on both sides of labia - States history of similar bumps after shaving when younger Review of Systems Constitutional: Negative for chills, fatigue and fever. HENT: Positive for sore throat. Negative for congestion, ear pain, rhinorrhea and trouble swallowing. Respiratory: Negative for shortness of breath. Cardiovascular: Negative for chest pain and leg swelling. Gastrointestinal: Negative for abdominal pain, diarrhea and vomiting. Genitourinary: Positive for genital sores. Negative for dyspareunia, dysuria, frequency, hematuria,urgency, vaginal discharge and vaginal pain. Skin: Negative for rash. Neurological: Negative for headaches. Patient Active Problem List Diagnosis Hirsutism Hypothyroidism Thyroid nodule Obesity Uterine leiomyoma Papilledema, both eyes Polyarthralgia Attention deficit hyperactivity disorder (ADHD) Chronic cough Other sleep apnea Allergic contact blepharoconjunctivitis Fibromyalgia Allergies Allergen Reactions Norethindrone Itching Sulfa Antibiotics Hives OBJECTIVE Vitals: 09/12/25 1108 BP: 132/70 BP Location: Left arm Patient Position: Sitting BP Cuff Size: Adult Pulse: 89 Resp: 20 Temp: 98.4 ??F (36.9 ??C) TempSrc: Oral SpO2: 98% Weight: 223 lb (101 kg) Height: 5' 4 (1.626 m) Physical Exam Exam conducted with a intake rn present. Constitutional: General: She is not in acute distress. Appearance: Normal appearance. HENT: Right Ear: Tympanic membrane, ear canal and external ear normal. Left Ear: Tympanic membrane, ear canal and external ear normal. Nose: No congestion or rhinorrhea. Mouth/Throat: Pharynx: Posterior oropharyngeal erythema present. No oropharyngeal exudate or postnasal drip. Tonsils: No tonsillar exudate. 1+ on the right. 1+ on the left. Cardiovascular: Rate and Rhythm: Normal rate and regular rhythm. Heart sounds: Normal heart sounds. No murmur heard. Pulmonary: Effort: Pulmonary effort is normal. Breath sounds: Normal breath sounds. No wheezing or rhonchi. Genitourinary: Pubic Area: No rash. Labia: Right: Lesion present. Comments: Hyperpigmentation b/l inguinal crease. ~ 4-5mm papule R labia majora without erythema, no discharge or bleeding, no TTP Musculoskeletal: Cervical back: Normal range of motion and neck supple. No tenderness. Lymphadenopathy: Cervical: No cervical adenopathy. Neurological: General: No focal deficit present. Mental Status: She is alert and oriented to person, place, and time. Cranial Nerves: No cranial nerve deficit. Motor: No weakness. Gait: Gait normal. Psychiatric: Mood and Affect: Mood normal. Office Visit on 09/12/2025 Component Date Value Ref Range Status Color, UA 09/12/2025 Yellow Final Clarity, UA 09/12/2025 Hazy Final Glucose, UA 09/12/2025 Negative Final Bilirubin, UA 09/12/2025 Negative Final Ketones, UA 09/12/2025 Negative Final Spec Grav, UA 09/12/2025 1.015 Final Blood, UA 09/12/2025 Negative Negative, None Detected Final pH, UA 09/12/2025 7.0 Final Protein, UA 09/12/2025 Negative Final Urobilinogen, UA 09/12/2025 0.2 Final Leukocytes, UA 09/12/2025 Negative Negative, Rare, Trace Final Nitrite, UA 09/12/2025 Negative Negative, None Detected Final QC Media Lot # 09/12/2025 [id number] Final Lot# Expiration Date 09/12/2025 9,302,[id number] Final Rapid COVID Ag 09/12/2025 Negative Final QC Media Lot # 09/12/2025 [id number] Final Lot# Expiration Date 09/12/2025 [id number] Final Influenza A 09/12/2025 Negative Negative, Indeterminate Final QC Media Lot # 09/12/2025 [id number] Final Lot# Expiration Date 09/12/2025 12,012,026 Final Influenza B 09/12/2025 Negative Negative, Indeterminate Final QC Media Lot # 09/12/2025 [id number] Final Lot# Expiration Date 09/12/2025 12,012,026 Final Rapid Strep A Screen 09/12/2025 Positive (A) Negative, None Detected Final QC Media Lot # 09/12/2025 [id number] Final Lot# Expiration Date 09/12/2025 2,[phone] Final ASSESSMENT/PLAN Diagnoses and all orders for this visit: Strep pharyngitis -treat with PCN VK BID x 10 days -encouraged motrin prn -advised rtc if symptoms don't resolve - POCT Urinalysis - POCT Rapid Covid-19 BinaxNOW - POCT Rapid Influenza A BAKER ID NOW - POCT Rapid Influenza B BAKER ID NOW - POCT Rapid Strep A BAKER ID NOW - penicillin v potassium (Veetid) 500 MG tablet; Take 1 tablet (500 mg) by mouth 2 times daily for 10 days. - ibuprofen 600 MG tablet; Take 1 tablet (600 mg) by mouth every 6 (six) hours if needed for mild pain or fever. Vaginal irritation Probable candidiasis -treat empirically with diflucan -trial terconazole cream for symptomatic relief -send BV panel and GC/CT -advised rtc if symptoms do not resolve - Bacterial Vaginosis Panel - Chlamydia/N. Gonorrhoeae RNA, TMA, Vaginal - fluconazole (Diflucan) 150 MG tablet; Take 1 tablet (150 mg) by mouth 1 (one) time for 1 dose. - terconazole (Terazol 7) 0.4 % vaginal cream; Insert 1 applicator into the vagina at bedtime for 7days. Labial lesion Likely pustule, no abscess or surrounding cellulitis -provided reassurance -advised no shaving -encouraged warm compresses -advised rtc if any pain, redness or discharge, she agrees with plans F/U with PCP as scheduled or sooner prn Current Outpatient Medications: acetaminophen (Tylenol 8 Hour) 650 MG ER tablet, TAKE 1 TABLET BY MOUTH EVERY 8 HOURS NEEDED FORMILD PAIN. NOT TO EXCEED 6 TABLETS PER DAY, Disp: , Rfl: cetirizine (ZyrTEC) 10 MG tablet, Take 1 tablet (10 mg) by mouth at bedtime., Disp: 90 tablet, Rfl:0 cholecalciferol (Vitamin D-3) 50 MCG (2000 UT) capsule, Take 1 capsule (50 mcg) by mouth Once per day., Disp: 120 capsule, Rfl: 3 Diclofenac Sodium 1 % gel, APPLY 1 APPLICATION TOPICALLY TO THE AFFECTED AREA 4 TIMES A DAY NEEDED FOR MILD PAIN, Disp: , Rfl: famotidine (Pepcid) 20 MG tablet, Take 1 tablet (20 mg) by mouth at bedtime., Disp: 30 tablet, Rfl:2 ferrous gluconate (Fergon) 324 (38 Fe) MG tablet, Take 1 tablet (324 mg) by mouth with breakfast., Disp: 90 tablet, Rfl: 1 fexofenadine (Ana) 180 MG tablet, Take 1 tablet (180 mg) by mouth if needed each day (Allergies)., Disp: 90 tablet, Rfl: 0 fluconazole (Diflucan) 150 MG tablet, Take 1 tablet (150 mg) by mouth 1 (one) time for 1 dose., Disp: 1 tablet, Rfl: 0 gabapentin (Neurontin) 100 MG capsule, Take 1 capsule (100 mg) by mouth every 8 (eight) hours., Disp: 90 capsule, Rfl: 1 hydrOXYzine pamoate (Vistaril) 25 MG capsule, Take 1 capsule (25 mg) by mouth every 6 (six) hours if needed for anxiety., Disp: 90 capsule, Rfl: 1 ibuprofen 600 MG tablet, Take 1 tablet (600 mg) by mouth every 6 (six) hours if needed for mild pain or fever., Disp: 40 tablet, Rfl: 1 Mis Natural Products (BRAINSTRON MEMORY SUPPORT PO), Take by mouth., Disp: , Rfl: penicillin v potassium (Veetid) 500 MG tablet, Take 1 tablet (500 mg) by mouth 2 times daily for 10days., Disp: 20 tablet, Rfl: 0 sertraline (Zoloft) 50 MG tablet, Take 1 tablet (50 mg) by mouth Once per day., Disp: 90 tablet, Rfl: 1 Sodium Fluoride 1.1 % cream, [place] teeth for 2 minutes, morning and night. Spit, do not rinse. Do not eat or drink anything for 30 minutes following use., Disp: 112 g, Rfl: 3 terconazole (Terazol 7) 0.4 % vaginal cream, Insert 1 applicator into the vagina at bedtime for 7 days., Disp: 45 g, Rfl: 0 This note was drafted using Ambient (AI) technology. The patient/patient's guardian has been informed and has consented to the use of this technology: Yes documented in this encounter Plan of Treatment Upcoming Encounters Date Type Department Care Team ([facility] st Contact Info) Description 09/30/2025 9:15 AM EST Office Visit [facility] [address] [place], [place] [phone] Anastasiia Vital MD [address] [place] [address] 10/04/2025 9:00 AM EST Office Visit [facility] [address] [place], [place] [phone] Dion Kelly DMD [address] [place], [place] [phone] Scheduled Orders Name Type Priority Associated Diagnoses Orde r Schedule Bacterial Vaginosis Panel Microbiology Routine Vaginal irritation Ordered: 09/12/2025 Chlamydia/N. Gonorrhoeae RNA, TMA, Vaginal Microbiology Routine Vaginal irritation Ordered: 09/12/2025 documented as of this encounter Procedures Procedure Name Priority Date/Time Associated Diagnosis Comments POCT INFLUENZA A (ID NOW RAPID MOLECULAR) Routine 09/12/2025 10:55 AM EST Strep pharyngitis POCT INFLUENZA B (ID NOW RAPID MOLECULAR) Routine 09/12/2025 10:54 AM EST Strep pharyngitis POC BAKER ID NOW STREP A Routine 09/12/2025 10:53 AM EST Strep pharyngitis POCT RAPID COVID ANTIGEN Routine 09/12/2025 10:53 AM EST Strep pharyngitis POCT URINALYSIS DIPSTICK Routine 09/12/2025 10:51 AM EST Strep pharyngitis documented in this encounter Results * POCT Rapid Influenza A BAKER ID NOW (09/12/2025 10:55 AM EST) [facility] Influenza A Negative Negative, Indeterminate [facility] QC Media Lot # [id number] [facility] Lot# Expiration Date [facility] Swab 09/12/2025 10:5 5 AM EST Sirena Severino DO POINT OF CARE TEST ENTER/SAUL T ORDERABLES Final Result Performing Organization Address [facility] Co de Phone Number [facility] [address] [place] [phone] * POCT Rapid Influenza B BAKER ID NOW (09/12/2025 10:54 AM EST) [facility] Influenza B Negative Negative, Indeterminate [facility] QC Media Lot # [id number] [facility] Lot# Expiration Date [facility] Swab 09/12/2025 10:5 4 AM EST Sirena Severino DO POINT OF CARE TEST ENTER/SAUL T ORDERABLES Final Result Performing Organization Address [facility] Phone Number [facility] [address] [place] [phone] * (ABNORMAL) POCT Rapid Strep A BAKER ID NOW (09/12/2025 10:53 AM EST) [facility] Rapid Strep A Screen Positive( A) Negative, None Detected QC Media Lot # [id number] Lot# Expiration Date Swab 09/12/2025 10:5 3 AM EST Sirena Maycol DO POINT OF CARE TEST ENTER/SAUL T ORDERABLES Final Result * POCT Rapid Covid-19 BinaxNOW (09/12/2025 10:53 AM EST) [facility] Rapid COVID Ag Negative QC Media Lot # [id number] Lot# Expiration Date 8249,026 Swab 09/12/2025 10:5 3 AM EST Sirena Severino DO POINT OF CARE TEST ENTER/SAUL T ORDERABLES Final Result * POCT Urinalysis (09/12/2025 10:51 AM EST) Color, UA Yellow Clarity, UA Hazy Glucose, UA Negative Bilirubin, UA Negative Ketones, UA Negative Spec Grav, UA 1.015 Blood, UA Negative Negative, None Detected pH, UA 7.0 Protein, UA Negative Urobilinogen, UA 0.2 Leukocytes, UA Negative Negative, Rare, Trace Nitrite, UA Negative Negative, None Detected QC Media Lot # [id number] Lot# Expiration Date 9302,026 Urine (Urine, Random) 09/12/2025 10:51 AM EST Sirena Severino POINT OF CARE TEST ENTER/SAUL T ORDERABLES Final Result documented in this encounter Visit Diagnoses Diagnosis Strep pharyngitis- Primary Vaginal irritation Pruritus of genital organs Labial lesion Other specified noninflammatory disorder of vulva and perineum documented in this encounter Additional Health Concerns Assessment Noted Time PHQ-9 Depression Total Score: 0 07/12/20 25 10:34 AM EDT documented as of this encounter Care Teams Log Data Technician Relationship Specialty Start Date End Date Anastasiia Vital MD [address] [place] [phone] PCP - General Family Medicine 06/28/24 documented as of this encounter
--- OUTSIDE RECORDS SUMMARY | 2025-09-12 21:02 | XMS_ITS | Encounter Summary ---
Author Organization [employer] Address [address] [facility] 7 [place] [address] Care Team Providers Care Printed Circuit Board Designer Name Role Phone Anastasiia Vital MD Primary Care Provider [phone] Encounter Details Date Type Department Care Team (Late st Contact Info) Description 07/17/2024 Orders Only [facility] [address] [place] [address] Provider, MD [place] Social History Tobacco Use [...] Care Team (Late st Contact Info) Description 09/30/2025 9:15 AM EST Office Visit [facility] [address] [place] [address] Anastasiia Vital MD [address] [place] [address] 10/04/2025 9:00 AM EST Office Visit [facility] [address] [place], [place] [phone] Dion Kelly DMD [address] [place], [place] [phone] documented as of this encounter Procedures Procedure [...] documented as of this encounter Care Teams Printed Circuit Board Designer Relationship Specialty Start Date End Date Anastasiia Vital MD [address] [place] [phone] PCP - General Family Medicine 06/28/24 documented as of this encounter
--- OUTSIDE RECORDS SUMMARY | 2025-09-12 21:02 | XMS_ITS | Encounter Summary ---
Author Organization [employer] Address [address] [facility] 7 [place] [address] Care Team Providers Care Digital Marketing Apprentice Name Role Phone Anastasiia Vital MD Primary Care Provider [phone] Encounter Details Date Type Department Care Team (Late st Contact Info) Description 08/01/2024 Orders Only [facility] [address] [place] [address] Provider, MD [place] Social History Tobacco Use [...] Questionnaire -2 Score 4 08/03/2024 10:05 AM EDT Anastasiia Vital MD * How difficult have these problems made it for you to do your work, take care of things at home, or get along with other people? Answer Date of Assessment Author Extremely difficult 08/03/2024 10:05 AM Anastasiia Bedoya MD * Over the last 2 weeks, [...] Upcoming Encounters Date Type Department Care Team ([facility] st Contact Info) Description 09/30/2025 9:15 AM EST Office Visit [facility] [address] [place] [address] Anastasiia Vital MD [address] [place] [address] 10/04/2025 9:00 AM EST Office Visit [facility] [address] [place] [address] Dion Kelly, [place] [address] [place] [address] documented as of this encounter Procedures Procedure Name Priority Date/Time Associated Diagnosis Comments THIN PREP PAP Routine 10/10/2023 2:09 PM EST THIN PREP PAP Routine 10/10/2023 2:08 PM EST documented in this encounter Results * THIN PREP PAP (10/10/2023 2:09 PM EST) Historical Provider LAB CYTOLOGY ORDERABLES F inal Result * THIN PREP PAP (10/10/2023 2:08 PM EST) Historical Provider MD LAB CYTOLOGY ORDERABLES F inal Result documented in this encounter Visit Diagnoses Not on filedocumented in this encounter Additional Health Concerns Assessment Noted Time PHQ-9 Depression Total Score: 16 024 11:08 AM EDT documented as of this encounter Care Teams Digital Marketing Apprentice Relationship Specialty Start Date End Date Anastasiia Vital MD [address] [place] [phone] PCP - General Family Medicine 06/28/24 documented as of this encounter
--- OUTSIDE RECORDS SUMMARY | 2025-09-12 21:02 | XMS_ITS | Clinical Summary ---
Author Organization [employer] Address [address] [facility] [address] [place] [address] Care Team Providers Care Mexican Food Maker Name Role Phone Anastasiia Vital MD Primary Care Provider [phone] Allergies Active Allergy Reactions Criticality Noted Date Comments Norethindrone Itching 07/12/2019 Sulfa Antibiotics Hives 05/04/2019 Medications Misc Natural Products ([employer] PO) Take by mouth. Activ e acetaminophen (Tylenol 8 Hour) 650 MG ER tablet TAKE 1 TABLET BY MOUTH EVERY 8 HOURS NEEDED FOR MILD PAIN. NOT TO EXCEED 6 TABLETS PER DAY 4 Active fexofenadine (Ana) 180 MG tablet Take 1 tablet (180 mg) by mouth if needed each day (Allergies). 90 tablet 5 Active Diclofenac Sodium 1 % gel APPLY 1 APPLICATION TOPICALLY TO THE AFFECTED AREA 4 TIMES A DAY NEEDED FOR MILD PAIN 5 Active cholecalciferol (Vitamin D-3) 50 MCG (1999 UT) capsule Take 1 capsule (50 mcg) by mouth Once per day. 120 capsule 3 5 Active sertraline (Zoloft) 50 MG tabletIndication s:Anxiety,Depres elkin, unspecified depression type Take 1 tablet (50 mg) by mouth Once per day. 90 tablet 1 5 Active hydrOXYzine pamoate (Vistaril) 25 MG capsuleIndicatio ns:Anxiety,Depre ssion, unspecified depression type Take 1 capsule (25 mg) by mouth every 6 (six) hours if needed for anxiety. 90 capsule 1 5 Active cetirizine (ZyrTEC) 10 MG tablet Take 1 tablet (10 mg) by mouth at bedtime. 90 tablet 5 Active famotidine (Pepcid) 20 MG tablet Take 1 tablet (20 mg) by mouth at bedtime. 30 tablet 2 5 Active Sodium Fluoride 1.1 % creamIndications :Dental caries [place] teeth for 2 minutes, morning and night. Spit, do not rinse. Do not eat or drink anything for 30 minutes following use. 112 g 3 5 Active gabapentin (Neurontin) 100 MG capsule Take 1 capsule (100 mg) by mouth every 8 (eight) hours. 90 capsule 1 5 Active ferrous gluconate (Fergon) 324 (38 Fe) MG tabletIndication s:Microcytosis Take 1 tablet (324 mg) by mouth with breakfast. 90 tablet 1 5 Active fluconazole (Diflucan) 150 MG tablet Take 1 tablet (150 mg) by mouth 1 (one) time for 1 dose. 1 tablet 5 09/12/20 25 Active terconazole (Terazol 7) 0.4 % vaginal cream Insert 1 applicator into the vagina at bedtime for 7 days. 45 g 5 09/19/20 25 Active penicillin v potassium (Veetid) 500 MG tablet Take 1 tablet (500 mg) by mouth 2 times daily for 10 days. 20 tablet 5 09/22/20 25 Active ibuprofen 600 MG tablet Take 1 tablet (600 mg) by mouth every 6 (six) hours if needed for mild pain or fever. 40 tablet 1 5 09/12/20 26 Active Active Problems Problem Noted Date Diagnosed Date [...] Encounters Date Type Department Care Team Description 09/12/2025 10:00 AM EST Office Visit [facility] [address] [place] [phone] Sirena Severino DO Strep pharyngitis (Primary Dx); Vaginal irritation; Labial lesion 09/12/2025 Travel 08/15/2025 Telephone [facility] [address] [place] [address] Anastasiia Vital MD Results 08/15/2025 Telephone [facility] [address] [place] [phone] Anastasiia Vital MD Referral 07/23/2025 10:30 AM EDT Office Visit [facility] [address] [place] [address] Dion Kelly DMD Dental caries (Primary Dx) 07/17/2025 Telephone [facility] [address] [place] [address] [phone] Anastasiia Vital MD 07/15/2025 11:20 AM EDT Office Visit [facility] [address] [place] [address] Gilbert Duran 07/15/[address] [facility] [address] [place] [address] Anastasiia Vital MD 07/15/[address] [facility] [address] [place] [address] Anastasiia Vital MD 07/15/2025 Travel 07/15/2025 Results Follow-Up [facility] [address] [place] [address] Anastasiia Vital MD POCT Rapid Strep A OSOM, CBC auto differential, Comprehensive Metabolic Panel, Additional followed-up results: 7 07/12/2025 10:30 AM EDT Office Visit [facility] [address] [place] [address] Anastasiia Vital MD Sore throat (Primary Dx); Plantar fasciitis; Fibromyalgia; Encounter for health-related screening; Class 2 severe obesity with serious comorbidity and body mass index (BMI) of 39.0 to 39.9 in adult, unspecified obesity type ([facility]) 07/12/2025 Travel 07/08/2025 10:00 AM EDT Office Visit [facility] AD[facility] [address] [place] [address] Casey Lacey Dental calculus (Primary Dx); Dental caries 07/08/[address] [facility] [address] [place] [address] Anastasiia Vital MD 07/05/2025 Patient Outreach [facility] [address] [place] [address] [phone] Anastasiia Vital MD Pre-visit Planning (SDOH screening completed on 05/01/25) 07/05/[address] [facility] [address] [place] [address] Anastasiia Vital MD Anxiety; Depression, unspecified depression type from Last 3 Months Immunizations Immunization Administration [...] Mass Index 38.28 09/12/2025 11:08 AM EST Plan of Treatment Upcoming Encounters Date Type Department Care Team (Late st Contact Info) Description 09/30/2025 9:15 AM EST Office Visit [facility] [address] [place] [address] Anastasiia Vital MD [address] [place] [address] 10/04/2025 9:00 AM EST Office Visit [facility] [address] [place] [address] Dion Kelly DMD [address] [place] [address] Health Maintenance Due Date Last Done Comments Family Planning (PISQ) 01/04/2003 HPV Vaccines (1 - 3-dose series) 01/04/2003 Hepatitis B Vaccines (1 of 3 - 19+ 3-dose series) 01/04/2007 COVID-19 Vaccine ( - 2024-2 6 season) 2025 Influenza Vaccine (#1) 2025 , 08/13/2019 Alcohol/Substance Use Screening 10/01/2025 10/01/2024 Dental X-Ray: Bitewings 10/24/2025 10/23/20 24, 11/26/2019 Dental Oral Exam 01/06/2026 07/08/2025, 11/26/2019 Dental Prophylaxis 01/06/2026 07/08/2025, 10/23/2024 SDOH Screening 05/01/2026 05/01/2025 Depression Screening 07/12/2026 07/12/2025, 07/12/2025 Disability Screening 07/12/2026 07/12/2025 Tobacco Screening 09/12/2026 09/12/2025 Dental X-Ray: Full Mouth 10/24/2027 024, 08/17/2022, 11/26/2019 Cervical Cancer Screening 10/10/2028 HPV/Cotest 10/10/2028 [...] Routine 09/12/2025 10:51 AM EST Strep pharyngitis CASE PRESENTATION, DETAILED AND EXTENSIVE TREATMENT PLANNING Routine 07/23/2025 10:30 AM EDT Dental caries 13 MOD RESIN-BASED COMPOSITE - 3 SURF, POSTERIOR Routine 07/23/2025 10:30 AM EDT Dental caries 14 MOD RESIN-BASED COMPOSITE - 3 SURF, POSTERIOR Routine 07/23/2025 10:30 AM EDT Dental caries FERRITIN Routine 07/18/2025 10:10 AM EDT Microcytosis IRON AND TOTAL IRON BINDING CAPACITY Routine 07/18/2025 10:10 AM EDT Microcytosis 8 INTRAORAL - PERIAPICAL FIRST RADIOGRAPHIC IMAGE [...] to Health Maintenance Results * POCT Rapid Influenza A BAKER ID NOW (09/12/2025 10:55 AM EST) Influenza A Negative Negative, Indeterminate [facility] QC Media Lot # [id number] [facility] Lot# Expiration Date [facility] Swab 09/12/2025 10:5 5 AM EST Sirena Severino DO POINT OF CARE TEST ENTER/SAUL T ORDERABLES Final Result Performing Organization Address [facility]/ZIP Co de Phone Number [facility] [address] [place] [phone] * POCT Rapid Influenza B BAKER ID NOW (09/12/2025 10:54 AM EST) Influenza B Negative Negative, Indeterminate [facility] QC Media Lot # [id number] [facility] Lot# Expiration Date [facility] Swab 09/12/2025 10:5 4 AM EST us Sirena Severino DO POINT OF CARE TEST ENTER/SAUL T ORDERABLES Final Result [facility] [address] [place] [phone] * (ABNORMAL) POCT Rapid Strep A BAKER ID NOW (09/12/2025 10:53 AM EST) [facility] Rapid Strep A Screen Positive( A) Negative, None Detected QC Media Lot # [id number] Lot# Expiration Date Swab 09/12/2025 10:5 3 AM EST Sirena Severino DO POINT OF CARE TEST ENTER/SAUL T ORDERABLES Final Result * POCT Rapid Covid-19 BinaxNOW (09/12/2025 10:53 AM EST) [facility] Rapid COVID Ag Negative QC Media Lot # [id number] Lot# Expiration Date , Swab 09/12/2025 10:5 3 AM EST Sirena Severino DO POINT OF CARE TEST ENTER/SAUL T ORDERABLES Final Result * POCT Urinalysis (09/12/2025 10:51 AM EST) [facility] Color, UA Yellow Clarity, UA Hazy Glucose, UA Negative Bilirubin, UA Negative Ketones, UA Negative Spec Grav, UA 1.015 Blood, UA Negative Negative, None Detected pH, UA 7.0 Protein, UA Negative Urobilinogen, UA 0.2 Leukocytes, UA Negative Negative, Rare, Trace Nitrite, UA Negative Negative, None Detected QC Media Lot # [id number] Lot# Expiration Date ,026 Urine (Urine, Random) 09/12/2025 10:51 AM EST Sirena Severino DO POINT OF CARE TEST ENTER/SAUL T ORDERABLES Final Result * Iron And Total Iron Binding Capacity (07/18/2025 10:10 AM EDT) Iron 50 30 - 160 mcg/dL [facility] Total Iron Binding Capacity 324 228 - 428 mcg/dL [facility] Percent Iron Saturation 15 15 - 50 % [facility] Unsaturated Iron Binding 274 ug/dL [facility] Blood Venous blood specimen / Unknown 07/18/2025 10:10 AM EDT 07/18/2025 2:32 PM EDT us Anastasiia Vital MD LAB BLOOD ORDERABLES Final Re sult Performing Organization Address City/[facility]/ZIP Co de Phone Number [facility] [address] [place] [phone] * Ferritin (07/18/2025 10:10 AM EDT) Ferritin 19 10 - 122 ng/mL [facility] Blood Venous blood specimen / Unknown 07/18/2025 10:10 AM EDT 07/18/2025 2:32 PM EDT Anastasiia Vital MD LAB BLOOD ORDERABLES Final Re sult Performing Organization Address [facility] de Phone Number [facility] [address] [place] [phone] * TSH W/Reflex to FT4 (07/12/2025 11:34 AM EDT) TSH reflex Free T4 0.90 0.32 - 4.0 uIU/mL [facility] Blood Venous blood specimen / Unknown 07/12/2025 11:34 AM EDT 07/12/2025 2:25 PM EDT us Anastasiia Vital MD LAB BLOOD ORDERABLES Final Re sult Performing Organization Address [facility] Co de Phone Number [facility] [address] [place] [phone] * (ABNORMAL) CBC auto differential (07/12/2025 11:34 AM EDT) White Blood Count 11.6(H) 4.8 - 10.8 X10*3/uL [facility] Red Blood Count 4.05(L) 4.20 - 5.50 X10*6/uL [facility] Hemoglobin 10.4(L) 12.0 - 16.0 g/dl [facility] Hematocrit 32.1(L) 37.0 - 47.0 % [facility] Mean Corpuscular Volume 79.3(L) 80.0 - 98.0 fL [facility] Mean Corpuscular Hemoglobin 25.7(L) 27.0 - 33.0 pg [facility] Mean Corpuscular HGB Conc 32.4 31.0 - 35.0 g/dl [facility] Red Cell Distribution Width 14.6 11.0 - 16.0 % [facility] Platelet Count 442(H) 160 - 400 X10*3/uL [facility] Mean Platelet Volume 12.7(H) 9.4 - 12.3 fL [facility] Neutrophils Percent Auto 79.1(H) 45 - 73 % [facility] Imm Gran Pct Auto 0.3 0.0 - 0.4 % [facility] Lymphocytes Percent Auto 13.8(L) 20 - 40 % [facility] Monocytes Percent Auto 5.9 2 - 11 % [facility] Eosinophils Percent Auto 0.3 0 - 4 % [facility] Basophils Percent Auto 0.6 0 - 2 % [facility] NRBC Pct Auto 0.0 0.0 - 0.2 /100WBC [facility] Neutrophils Absolute Auto 9.2(H) 2.0 - 8.3 x10*3/uL [facility] Imm Gran Abs Auto 0.04(H) 0.00 - 0.03 X10*3/uL [facility] Lymphocytes Absolute Auto 1.6 1.2 - 4.9 X10*3/uL [facility] Monocytes Absolute Auto 0.7 0.1 - 1.2 X10*3/uL [facility] Eosinophils Absolute Auto 0.0 0.0 - 0.4 X10*3/uL [facility] Basophils Absolute Auto 0.1 0.0 - 0.2 X10*3/uL [facility] NRBC Abs Auto 0.000 0.0 - 0.012 X10*3/uL [facility] Blood Venous blood specimen / Unknown 07/12/2025 11:34 AM EDT 07/12/2025 2:25 PM EDT Anastasiia Vital MD LAB BLOOD ORDERABLES Final Re sult Performing Organization Address [facility]/ZIP Co de Phone Number [facility] [address] [place] [phone] * Hepatitis C Antibody with Reflex to HCV, RNA, Quantitative, Real-Time PCR (07/12/2025 11:34 AM EDT) Hepatitis C Antibody Nonreactive Nonreactive [facility] Comment:Antibodies to HCV no t detected; does not exclude early acuteHCV infection. Blood Venous blood specimen / Unknown 07/12/2025 11:34 AM EDT 07/12/2025 2:25 PM EDT Anastasiia Vital MD LAB BLOOD ORDERABLES Final Re sult Performing Organization Address [facility] Co de Phone Number [facility] [address] [place] [address] [phone] * Hepatitis B surface antigen, EIA (07/12/2025 11:34 AM EDT) Hepatitis B Surface Ag Negative Negative [facility] Blood Venous blood specimen / Unknown 07/12/2025 11:34 AM EDT 07/12/2025 2:25 PM EDT Anastasiia Vital MD LAB BLOOD ORDERABLES Final Re sult Performing Organization Address [facility] Co de Phone Number [facility] [address] [place] [phone] * Hepatitis B Core Antibody, Total (07/12/2025 11:34 AM EDT) Hepatitis B Core Antibody Nonreactive Nonreactive [facility] Blood Venous blood specimen / Unknown 07/12/2025 11:34 AM EDT 07/12/2025 2:25 PM EDT us Anastasiia Vital MD LAB BLOOD ORDERABLES Final Re sult [facility] [address] [place] [phone] * HIV-1/2 Antigen and Antibodies, Fourth Generation, with Reflexes (07/12/2025 11:34 AM EDT) HIV AB/AG Nonreactive Nonreactive [facility] Comment:HIV-1 p24 Ag and/or HIV-1/HIV-2 Ab not detected.A test result that is nonreactive does not exclude thepossibility of exposure to or infection with HIV-1 and/orHIV-2. Nonreactive results in this assay for individualswith prior exposure to HIV-1 and/or HIV-2 may be due toantigen and antibody levels that are below the limit ofdetection of this assay.The [employer] HIV Ag/Ab Combo assay result andsupplemental assay results should be interpreted inconjunction with the patient's clinical presentation,history and other laboratory results. If the results areinconsistent with clinical evidence, additional testing issuggested to confirm the result. Blood Venous blood specimen / Unknown 07/12/2025 11:34 AM EDT 07/12/2025 2:25 PM EDT us Anastasiia Vital MD LAB BLOOD ORDERABLES Final Re sult [facility] [address] [place] [address] [phone] * Hepatitis B Surface Antibody, Qualitative (07/12/2025 11:34 AM EDT) ~Hepatitis B Surface Antibody NONREACTIVE Nonreactive [facility] Comment:Nonreactive: < 8.00 mIU/mL Blood Venous blood specimen / Unknown 07/12/2025 11:34 AM EDT 07/12/2025 2:25 PM EDT us Anastasiia Vital MD LAB BLOOD ORDERABLES Final Re sult Performing Organization Address [facility] Co de Phone Number [facility] [address] [place] [address] [phone] * (ABNORMAL) Lipid Panel, Standard (07/12/2025 11:34 AM EDT) Triglycerides 110 <150 mg/dL [facility] Comment:Desirable Triglyceri de: less than 150 mg/dLBorderline High Triglyceride 150-199 mg/dLHigh Triglyceride: 200-499 mg/dLVery High Triglyceride: greater than or equal to 5OO mg/dL Cholesterol 202(H) <200 mg/dL [facility] Comment:Desirable Cholestero l: less than 200 mg/dLBorderline High Cholesterol: 200-239 mg/dLHigh Cholesterol: greater than 239 mg/dL LDL Cholesterol Calculated 132(H) <100 mg/dL [facility] Comment:Desirable LDL: less than 100 mg/dLNear Optimal/Above Optimal LDL: 110- 129 mg/dLBorderline High LDL: 130-159 mg/dLHigh LDL: 160-189 mg/dLVery High LDL: greater than or equal to 190 mg/dL HDL Cholesterol 48 >40 mg/dL [facility] Comment:Desirable HDL: great er than 40 mg/dL Note: This HDL assay may give artificially low results in patients with liver disease. Blood Venous blood specimen / Unknown 07/12/2025 11:34 AM EDT 07/12/2025 2:25 PM EDT us Anastasiia Vital MD LAB BLOOD ORDERABLES Final Re sult [facility] [address] [place] [phone] * (ABNORMAL) Comprehensive Metabolic Panel (07/12/2025 11:34 AM EDT) Sodium 138 135 - 145 mmol/L [facility] Potassium 3.6 3.3 - 5.1 mmol/L [facility] Chloride 104 96 - 108 mmol/L [facility] Carbon Dioxide 27 22 - 29 mmol/L [facility] Anion Gap 11(L) 12 - 20 [facility] Urea Nitrogen (BUN) 12 9 - 16 mg/dL [facility] Creatinine, Serum 0.69 0.5 - 1.4 mg/dL [facility] Estimated Glomerular Filt Rate >60 [facility] Comment:Chronic Kidney Disea se: Estimated GFR < 60 mL/min/[id number] Kidney Disease: Estimated GFR < 15 mL/min/1.73m2 Glucose 108 60 - 115 mg/dL [facility] Calcium 9.0 8.4 - 10.2 mg/dL [facility] Bilirubin, Total 0.4 0.0 - 1.0 mg/dL [facility] Aspartate Amino Transferase 29 5 - 31 U/L [facility] Alanine Aminotransferase 30 0 - 31 U/L [facility] Total Protein 7.5 6.5 - 8.0 g/dL [facility] Albumin Level 4.2 3.5 - 5.0 g/dL [facility] Alkaline Phosphatase 82 39 - 117 U/L [facility] Blood Venous blood specimen / Unknown 07/12/2025 11:34 AM EDT 07/12/2025 2:25 PM EDT us Anastasiia Vital MD LAB BLOOD ORDERABLES Final Re sult Performing Organization Address [facility]/ZIP Co de Phone Number [facility] [address] [place] [phone] [phone] * POCT Rapid Strep A OSOM (07/12/2025 11:01 AM EDT) Rapid Strep A Screen Negative Negative, None Detected QC Media Lot # [id number] Lot# Expiration Date [id number] Swab 07/12/2025 11:0 1 AM EDT Anastasiia Vital MD POINT OF CARE TEST ENTER/EDIT ORDERABLES Final Result * HM PAP/HPV (10/10/2023 12:53 PM EST) Historical Provider HEALTH MAINTENANCE Final Result * (ABNORMAL) HPV mRNA E6/E7 (07/04/2019 3:41 PM EDT) Pathologist [facility] HPV mRNA E6/E7 DETECTED (AA) NOT DETECTED [facility] Comment: This test was performed using the APTIMA(R) HPV Assay ([employer] This assay detects E6/E7 viral messenger RNA (mRNA) from 14 high-risk HPV types (16,18,31,33,35,39,45,51, 52,56,58,59,66,68). For additional information please refer to: http://education.[employer]/faq/ZFH557i4 (This link is being provided for informational/ educational purposes only.) The analytical performance characteristics of this assay have been determined by [facility] [place], [place]. The modifications have not been cleared or approved by the FDA. This assay has been validated pursuant to the CLIA regulations and is used for clinical purposes. Test Performed by [facility], [facility] [place], [address] [place] [address] Bryce Watt M.D., Ph.D., Director of Laboratories , CLIA [id number] Please note: Effective 07/05/2016, HPV testing will be performed using [employer] APTIMA test which targets mRNA. Detecting mRNA instead of DNA, as in older methods, offers significant improvements in specificity. 07/04/2019 3:41 PM EDT us Carissa Leilani [facility] HISTORICAL/NON ORDERABLE LABS Final Result [facility] Anywhere [address] from Last 3 Months or Most Recently Relevant to Health Maintenance Insurance [id number] MEDICAID STAND ADULT Care Teams Mexican Food Maker Relationship Specialty Start Date End Date Anastasiia Vital MD [address] [place] [phone] PCP - General Family Medicine 06/28/24
--- OUTSIDE RECORDS SUMMARY | 2025-09-12 21:02 | XMS_ITS | Encounter Summary ---
Author Organization [employer] Address [address] [place] [address] Care Team Providers Care Molasses And Caramel Operator Name Role Phone Anastasiia Vital MD Primary Care Provider [phone] Encounter Details Date Type Department Care Team (Latest Contact Info) Description 09/12/2025 Travel Social History Tobacco Use Types Packs/Day [...] [facility] [address] [place] [address] Anastasiia Vital MD [address] [place] [address] 10/04/2025 9:00 AM EST Office Visit [facility] [address] [place] [address] Dion Kelly, [place] [address] [place] [address] documented as of this encounter Visit Diagnoses Not on filedocumented in this encounter Additional Health Concerns Assessment Noted Time PHQ-9 Depression Total Score: 0 07/12/20 25 10:34 AM EDT documented as of this encounter Care Teams Molasses And Caramel Operator Relationship Specialty Start Date End Date Anastasiia Vital MD [address] [place] [address] PCP - General Family Medicine 06/28/24 documented as of this encounter
--- OUTSIDE RECORDS SUMMARY | 2025-09-12 21:02 | XMS_ITS | Encounter Summary ---
Author Organization [email or web address] Address [address] [place] [address] Care Team Providers Care Manager Field Services Name Role Phone Anastasiia Vital MD Primary Care Provider [phone] Reason for Visit * Reason Onset Date Comments Referral 07/09/2024 Encounter Details Date Type Department Care Team ([facility] st Contact Info) Description 07/09/2024 Telephone [facility] [address] [place] [address] Anastasiia Vital MD [address] [place] [address] Referral Social History Tobacco Use Types Packs/Day [...] PM EDT Report printed and handed to repair specialist to send to Neuro. * Telephone Encounter - Marylou Lopez - 07/20/2024 3:35 PM EDT Can you please check [facility] records for an MRI of the brain [...] Requested for referral to be sent to [facility]. documented in this encounter Plan of Treatment Upcoming Encounters Date Type Department Care Team (Late st Contact Info) Description 09/30/2025 9:15 AM EST Office Visit [facility] [address] [place] [address] Anastasiia Vital MD [address] [place] [address] 10/04/2025 9:00 AM EST Office Visit [facility] [address] [place] [address] Dion Kelly DMD [address] [place] [address] documented as of this encounter Visit Diagnoses Not on filedocumented in this encounter Additional Health Concerns Assessment Noted Time PHQ-9 Depression Total Score: 16 024 11:08 AM EDT documented as of this encounter Care Teams Manager Field Services Relationship Specialty Start Date End Date Anastasiia Vital MD [address] [place] [phone] PCP - General Family Medicine 06/28/24 documented as of this encounter
[2025-09-13 00:15] LABS: Bacterial Vaginosis PCR NEGATIVE (Negative); Candida Group PCR NOT DETECTED (Not Detect); Candida glab krusei PCR DETECTED (Not Detect); Trichomonas vaginalis PCR NOT DETECTED (Not Detect)
[2025-09-13 00:45] LABS: CT PCR NOT DETECTED (Not Detect.); NG PCR NOT DETECTED (Not Detect.)
== END 2025-09-12 17:53 | disposition home or self-care (01) ==
LOC: HO.HHCLNP 17:52
PROVIDERS: Visit Provider Family Medicine
DX: Z20.2 Contact with and (suspected) exposure to infections with a predominantly sexual mode of transmission (principal); N89.8 Other specified noninflammatory disorders of vagina
CPT/HCPCS: 81515; 87491; 87591